=== PATIENT | male | born 1945 | race Caucasian/White ===

== ENCOUNTER 2017-09-28 08:31 | Inpatient (IN) | payer MEDICARE ==
--- NOTE | 2017-09-28 10:39 | RAD ---
FRONTAL RADIOGRAPH CHEST: DATE: 09/28/17. COMPARISON: 08/03/17. HISTORY: Pain. FINDINGS: Stable heart and mediastinal contours. No pneumothorax, lobar consolidation, or alveolar edema. Inc reased linear density in the left lung base suggests volume loss or scar. IMPRESSION: No lobar consolidation or alveolar edema. POS: [facility]
[2017-09-28] MEDS ORDERED: Amlodipine 5 MG TAB ONE (10:53)
[2017-09-28] MEDS ORDERED: hydrALAZINE 20 MG/ML VIAL ONE (10:53)
[2017-09-28] MEDS ORDERED: Metoprolol Tartrate 50 MG TAB ONE (10:53)
[2017-09-28] MEDS ORDERED: Piperacillin/Tazobactam 3.375 GM in Sodium Chloride 0.9% 100 ML IVPB SCH (12:15)
--- NOTE | 2017-09-28 12:29 | HP ---
PRIMARY CARE PHYSICIAN: Dr. Wetzel at [facility]. REASON FOR ADMISSION: Acute hypoxic respiratory failure and acute aspiration pneumonia. HISTORY OF PRESENT ILLNESS: A 71-year-old male who has multiple medical problems including hypertens ion, diabetes type 2, history of cerebrovascular accident with oropharyngeal dysphagia. Patient has PEG tube and he is getting all medication and nutritional support through the PEG tube. At the [facility], the patient was appeared in respiratory distress. He was appeared aspirated liquid. The [facility] official reported that this patient is noncompliant with the drinking. Whenever he does p hysical therapy, he drinks water from other patient. Today, when he drank water and after that he alcazar d choking and he was having gurgling sound in his throat and he was feeling shortness of breath. He was also having hypoxia and that is why paramedics was called and paramedics brought him to the emerg ency room. In the emergency room, he was barely maintaining saturations in the 90%. Initially, he was on nasal cannula oxygen, but that was not maintaining his oxygen saturation. That is why nonrebreather was st arted. The patient was given nebulizer therapy. That did not improve his condition. The patient's laboratory parameter appeared normal, but his overall condition appeared more worse. In our emergenc y room, he was saturating only 70% initially. We decided to keep this patient in the hospital in [facility] for close monitoring. This patient has similar presentation in 07/2017. At that time, patient required intubation. Today in the emergency room, chest x-ray did not show any acute infiltration. He has received Zosyn in the emergency room. The patient is not able to provide any history at this point, because of his respir atory distress. ALLERGIES: No known drug allergies. CURRENT HOME MEDICATIONS: Plavix 75 mg daily, potassium chloride 20 mEq daily, Flomax 0.4 mg daily, MiraLax 17 grams daily, pravastatin 40 mg daily, trazodone 50 mg daily, amlodipine 10 mg daily, lisin opril 20 mg p.o. daily, Lopressor 50 mg daily, hydralazine 50 mg 3 times daily, risperidone 0.25 mg t wice daily. The patient is taking metformin 500 mg twice daily. REVIEW OF SYSTEMS: The following complete review of systems was negative, unless otherwise mentioned in the HPI or below: Constitutional: Weight loss or gain, ability to conduct usual activities. Skin: Rash, itching. Eyes: Double vision, pain. ENT/Mouth: Nose bleeding, neck stiffness, pain, tenderness. Cardiovascular: Palpitations, dyspnea on exertion, orthopnea. Respiratory: Shortness of breath, wheezing, cough, hemoptysis, fever or night sweats. Gastrointestinal: Poor appetite, abdominal pain, heartburn, nausea, vomiting, constipation, or diarr hea. Genitourinary: Urgency, frequency, dysuria, nocturia. Musculoskeletal: Pain, swelling. Neurologic/Psychiatric: Anxiety, depression. Allergy/Immunologic: Skin rash, bleeding tendency. Review of systems is nonreliable, because of level of respiratory distress. Patient is not completel y participating with review of systems. 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 PAST SURGICAL HISTORY: Right great toe and metatarsal amputation, colon resection for colon cancer, PEG tube placement. PAST PSYCHIATRIC HISTORY: Anxiety and depression. SOCIAL HISTORY: Patient lives at [facility]. He is full code. He does not have any tobacco, alcohol or illicit drug abuse. FAMILY HISTORY: Diabetes, positive among several family members. One sister was diagnosed with lung cancer. EMERGENCY ROOM COURSE: The patient is given Zosyn, hydralazine 50 mg, amlodipine 10 mg, and Lopresso r 50 mg. PHYSICAL EXAMINATION: VITAL SIGNS: On arrival, blood pressure 93/55, pulse 100, respiratory rate 29, saturation 77% on alberto m air, temperature 99.1, weight 79.3 kilograms. GENERAL: Patient is in respiratory distress on nonrebreather. HEAD: Normocephalic, atraumatic. EYES: Pupils round, reactive to light. Extraocular muscles intact. ENT: Oropharynx within normal limits. Moist mucous membranes. No oral lesions. No pharyngeal eryt gwendolyn, no exudate. NECK: Supple. Range of motion is normal. No meningeal signs of irritation. LUNGS: Bilateral coarse breath sounds, gurgling sound noted in throat, diffuse rales noted. CARDIAC: S1, S2 regular, tachycardia, no murmur, no gallop, no rub. ABDOMEN: PEG tube in place. No distention. Bowel sounds present. No guarding, no rigidity, no shawna ound. BACK: Unremarkable, no CVA tenderness. EXTREMITIES: Upper extremities: Passive movement of all joints are normal. Lower extremities: Rig ht great toe amputation noted. No edema, good peripheral pulsation. SKIN: No skin rash. HEMATOLOGICAL: No lymphadenopathy. PSYCHIATRIC: Unable to assess at this point. NEUROLOGIC: He is moving all 4 limbs, but detailed neurological examination is not possible because of level of cognitive status as well as respiratory distress. SIGNIFICANT LABORATORY DATA AND IMAGING: EKG based on my review reveals normal sinus rhythm, nonspec ific ST-T changes, premature ventricular complexes. Chest x-ray based on my review, no acute cardiop ulmonary process. CBC: WBC 10.2, hemoglobin 13.4, platelets 175. CK-MB 2.6, troponin I less than 0 .010. Sodium 137, potassium 3.7, BUN 26, creatinine 1.06, glucose 175, chloride 96, carbon dioxide 3 1, calcium 9.5, total protein 6.9, albumin 3.7, alkaline phosphatase 71, AST 22, ALT 20, globulin 3.2 , albumin 3.7. ASSESSMENT AND PLAN: 1. Acute respiratory distress with acute hypoxic respiratory failure secondary to aspiration pneumon itis. At this point, the patient is requiring a nonrebreather. He is still in respiratory distress despite emergency room treatment. At this point, the patient is at high risk for intubation. We luis carlos ornelas keep this patient in IMCU. We will consult weather reporter propulsion generator repairer. Meanwhile, we will continue wit h the DuoNeb q.6 hourly and as needed basis along with Solu-Medrol 40 mg IV q.8 hourly. We will keep him in n.p.o. except medications. We will continue with oxygen to keep saturation above 92%. We luis carlos ornelas closely monitor in IMCU. 2. Acute aspiration pneumonitis/pneumonia. Patient has low grade fever. He is in respiratory distr ess, currently chest x-ray is not showing any infiltration, but we will repeat chest x-ray again michaelle rrow. The patient will be kept on broad spectrum antibiotic therapy with Zosyn. 3. Diabetes type 2. We will continue with insulin as per sliding scale per protocol, monitor Accu-C hek every 6 hourly. 4. Hypertension. We will continue with hydralazine and clonidine on p.r.n. basis for high blood pre ssure if needed. 5. Benign enlargement of prostate. We will continue patient's home medication of Flomax 0.4 mg zehra y. 6. Dyslipidemia. We will continue pravastatin 40 mg per tube daily. 7. History of cerebellar stroke. We will continue Plavix along with statin therapy and antihyperten sive medication, amlodipine and lisinopril as per home dosage. 8. Oropharyngeal dysphagia, we will continue with tube feeding when the patient is more stabilized. We will keep him n.p.o. for now except medications. 9. Anxiety and depression. We will resume risperidone 0.25 mg twice daily when the patient is more stabilized. 10. Deep venous thrombosis prophylaxis. Lovenox 40 mg subcu daily. 11. Gastrointestinal prophylaxis, Protonix 40 mg IV daily. 12. Code status: The patient has full code status at skilled nursing and patient's son, Sriram Hall i s the surrogate decision maker. Disposition and plan based on clinical course. We are expecting patient's stay in hospital more than 2 midnights. Plan of care discussed with the family member.
[2017-09-28] MEDS ORDERED: hydrALAZINE 25 MG TAB PO ONE (13:15)
[2017-09-28 13:55] LABS: Troponin I Less than 0.010 ng/mL (< 0.028)
[2017-09-28 13:57] LABS: Anion Gap 14 mmol/L (10-20); BUN (Urea Nitrogen) 26 mg/dL (8.4-25.7); Calc. Creatinine Clearance 0 mL/min (70-130); Carbon Dioxide 31 mmol/L (23-31); Chloride 96 mmol/L (98-107); Estimated GFR-MDRD 69
[2017-09-28 13:58] LABS: ALT (SGPT) 20 U/L (8-55); AST (SGOT) 22 U/L (5-34); Alkaline Phosphatase 71 U/L (40-150); Bilirubin, Total 0.5 mg/dL (0.2-1.2); Calcium 9.5 mg/dL (7.8-10.44); Globulin 3.2 g/dL (2.4-3.5); Protein, Total 6.9 g/dL (5.8-8.1)
[2017-09-28] MEDS ORDERED: Sodium Chloride 0.65% Nasal 44 ML BOT EA NARE PRN (14:30)
[2017-09-28] MEDS ORDERED: Milk Of Magnesia 30 ML UDCUP PER TUBE PRN (14:30)
[2017-09-28] MEDS ORDERED: cloNIDine 0.1 MG TAB PER TUBE PRN (14:30)
[2017-09-28] MEDS ORDERED: Dextrose 5% in Water 1,000 ML IV PRN (14:30)
[2017-09-28] MEDS ORDERED: Diabetic Tussin 200 MG/10 ML UDCUP PER TUBE PRN (14:30)
[2017-09-28] MEDS ORDERED: HYDROcodone/Acetaminophen 5/325 mg Tablet PER TUBE PRN (14:30)
[2017-09-28] MEDS ORDERED: Ondansetron HCl/PF 4 MG/2 ML Vial IVP PRN (14:30)
[2017-09-28] MEDS ORDERED: Bisacodyl 10 MG SUPP PR PRN (14:30)
[2017-09-28] MEDS ORDERED: Acetaminophen 325 MG TAB PER TUBE PRN (14:30)
[2017-09-28] MEDS ORDERED: Loratadine 10 MG TAB PER TUBE PRN (14:30)
[2017-09-28] MEDS ORDERED: Loperamide HCl 2 MG CAP PER TUBE PRN (14:30)
[2017-09-28] MEDS ORDERED: Eucerin (Mineral Oil/Petrolatum,White) 30 gm Jar TOP PRN (14:30)
[2017-09-28] MEDS ORDERED: hydrALAZINE 20 MG/ML VIAL SLOW IVP PRN (14:30)
[2017-09-28] MEDS ORDERED: Mag-Al 1200 mg/1200 mg/30 ML UDCUP PER TUBE PRN (14:30)
[2017-09-28] MEDS ORDERED: Dextrose 50% Abboject 50 ML SYRINGE SLOW IVP PRN (14:30)
[2017-09-28] MEDS ORDERED: Artificial Tears 18 DROP/0.9 ML EA EYE PRN (14:30)
[2017-09-28] MEDS ORDERED: Ondansetron ODT 4 MG TAB PER TUBE PRN (14:30)
[2017-09-28 14:32] LABS: Anion Gap 8 mmol/L (-14-95); T. Carbon Dioxide 35.1 mmol/L (1.0-85.0); vO2 Saturation-calc 92.7 % (0.0-100.0)
[2017-09-28 14:33] LABS: #Eosinphils 0.1 thou/uL (0.0-0.7); #Lymphocytes 1.2 thou/uL (1.20-3.40); #Monocytes 0.9 thou/uL (0.11-0.59); %Basophils 0.2 % (0.0-1.0); %Eosinophils 1.1 % (0.0-10.0); %Lymphocytes 11.8 % (21.0-51.0); %Monocytes 8.4 % (0.0-10.0); Hematocrit 40.1 % (42.0-52.0); Mean Platelet Volume 10.9 fL (7.4-10.4); Red Blood Cell (RBC) Count 4.79 mill/uL (4.70-6.10); White Blood Cell (WBC) Count 10.2 thou/uL (4.8-10.8)
[2017-09-28] MEDS: Vancomycin HCl 1.5 GM in Sodium Chloride 0.9% 250 ML 300 ML IVPB SCH (16:20)
[2017-09-28] MEDS: Piperacillin/Tazobactam 3.375 GM, Admixture Fee 1 EACH in Sodium Chloride 0.9% 100 ML IVPB SCH ×2 (18:33→23:33)
[2017-09-28] MEDS: guaiFENesin ER 600 MG TAB PER TUBE SCH (20:55)
[2017-09-28] MEDS ORDERED: FLU VACC TS2017-18 (>65YR) 0.5 ML SYRINGE IM ONE (21:00)
--- NOTE | 2017-09-28 21:06 | CON ---
DATE OF CONSULTATION: 09/28/2017 HISTORY OF PRESENT ILLNESS: This is a 71-year-old gentleman who was recently discharged from the [facility]. He has multiple issues. He came to the ER at 10:00 this morning with symptoms of shortness of breath, cough, recurrent aspira tion, sats were in the 70s, he was placed on nonrebreather. I am having difficulty handling his secretions. Sats noted was 77% on room air. On low-flow oxygen 4 liters, sats are still fluctuating anywhere from 77-93. He can audibly hear his rhonchi. He has a very poor cough. His x-ray shows retrocardiac density in the left side, but no other infiltrates. He is from the [facility]. He was gurgling when he came in. PAST MEDICAL HISTORY: CVA, left-sided deficit, diabetes, hypertension, lipidemia. Medical history i s pertinent for otherwise cerebellar stroke, BPH. PAST SURGICAL HISTORY: Colon and toe. MEDICATIONS: His list of medicine included trazodone, Risperdal 0.25, , hydralazine, Flomax 0.4 , pravastatin, metoprolol 50, lisinopril 20, Plavix 75, amlodipine 10. REVIEW OF SYSTEMS: Difficult to obtain. PHYSICAL EXAMINATION: GENERAL: He is clearly having difficulty breathing, sats noticed on 4 liters fluctuating from 77-94, pulse 74, temperature is 99, blood pressure 160/78. CHEST: Extensive rhonchi. CARDIAC: Sinus tachycardia. ABDOMEN: Soft. LABORATORY: WBC 10,000, H&H 13 and 40, platelet count 164. PO2 of 63, PCO2 40, pH 7.47 creatinine i s 0. Lytes are normal. IMPRESSION: Acute on chronic respiratory failure, retained secretions, cerebrovascular accident, dys phagia, diabetes. He is on Zosyn, vancomycin, neb treatments, steroids. PLAN: Diagnostic therapeutic bronchoscopy will be performed to clear his airways. He is FULL CODE. We will follow.
--- NOTE | 2017-09-28 21:22 | OP ---
PROCEDURE: Therapeutic bronchoscopy. INDICATIONS: Retained secretions. PROCEDURE IN DETAIL: After informed consent, a bite block was placed and no sedation was given. Sat s were being monitored, flexible bronchoscope was passed. There were copious amounts of thick purule nt secretions sitting on top of his vocal cords, posterior pharynx, all suctioned until clear. Upon entering the trachea, large volume of pus was seen in the trachea, which was suctioned and lavaged wi th normal saline. Initially, the right lung was inspected, right upper and right lower lobe, no endo bronchial disease was seen. Copious amount of pus was suctioned and lavaged until clear. Left lung was inspected thereafter. There is also large amount of pus, which was suctioned and lavaged until cl ear. Thereafter, both lungs were reinspected and relavaged the lungs. No endobronchial obstruction or bleeding was seen. The patient tolerated the procedure well. The washings were sent for Gram sta in and C&S.
[2017-09-29] MEDS: Vancomycin HCl 1.5 GM in Sodium Chloride 0.9% 250 ML 300 ML IVPB SCH ×2 (03:43→17:18)
[2017-09-29 04:48] LABS: #Lymphocytes 0.2 thou/uL (1.20-3.40); #Monocytes 0.6 thou/uL (0.11-0.59); #Neutrophils 6.6 thou/uL (1.40-6.50); %Basophils 0.3 % (0.0-1.0); %Eosinophils 0.1 % (0.0-10.0); %Lymphocytes 2.6 % (21.0-51.0); %Monocytes 7.9 % (0.0-10.0); Hematocrit 36.2 % (42.0-52.0); Mean Platelet Volume 11.2 fL (7.4-10.4); Red Blood Cell (RBC) Count 4.23 mill/uL (4.70-6.10); White Blood Cell (WBC) Count 7.4 thou/uL (4.8-10.8)
[2017-09-29 05:00] LABS: ALT (SGPT) 17 U/L (8-55); AST (SGOT) 19 U/L (5-34); Alkaline Phosphatase 52 U/L (40-150); Anion Gap 15 mmol/L (10-20); BUN (Urea Nitrogen) 25 mg/dL (8.4-25.7); Calc. Creatinine Clearance 75 mL/min (70-130); Calcium 9.1 mg/dL (7.8-10.44); Carbon Dioxide 28 mmol/L (23-31); Chloride 97 mmol/L (98-107); Estimated GFR-MDRD 57; Protein, Total 6.5 g/dL (5.8-8.1)
[2017-09-29] MEDS: Piperacillin/Tazobactam 3.375 GM, Admixture Fee 1 EACH in Sodium Chloride 0.9% 100 ML IVPB SCH ×4 (05:12→23:48)
[2017-09-29] MEDS: HumaLOG 300 UNITS/3 ML VIAL SC PRN ×4 (05:15→21:44)
--- NOTE | 2017-09-29 08:12 | RAD ---
CHEST 1 VIEW: HISTORY: Pneumonia. COMPARISON: 09/28/17. FINDINGS: Portable semiupright chest demonstrates cardiomegaly. There is atherosclerosis of the aorta. Pulmon debbie vessels are slightly prominent. There are patchy interstitial opacities. A right lower lobe inf iltrate is suspected. The possibility of left lower lobe infiltrate is also raised. No pneumothorax. IMPRESSION: Bibasilar interstitial infiltrates. Continued surveillance. POS: [facility]
[2017-09-29] MEDS: guaiFENesin ER 600 MG TAB PER TUBE SCH ×2 (08:55→20:53)
[2017-09-29] MEDS: Enoxaparin Sodium 40 MG/0.4 ML SYRINGE SC SCH (08:55)
[2017-09-29] MEDS: Saccharomyces boulardii 250 MG CAP PO SCH (08:55)
[2017-09-29] MEDS ORDERED: Pantoprazole 40 MG VIAL IVP SCH (09:00)
[2017-09-29] MEDS ORDERED: hydrALAZINE 20 MG/ML VIAL SLOW IVP PRN (09:19)
[2017-09-29] MEDS ORDERED: Lisinopril 10 MG TAB PER TUBE SCH (09:30)
[2017-09-29] MEDS ORDERED: Amlodipine 5 MG TAB PER TUBE SCH (09:30)
[2017-09-29] MEDS ORDERED: Metoprolol Tartrate 25 MG TAB PER TUBE SCH (09:30)
[2017-09-29] MEDS ORDERED: Clopidogrel Bisulfate 75 MG TAB PER TUBE SCH (09:30)
[2017-09-29] MEDS ORDERED: hydrALAZINE 25 MG TAB PO SCH (09:30)
[2017-09-29] MEDS ORDERED: NPH, Human Insulin Isophane 300 UNIT/3 ML VIAL SC SCH (12:00)
--- NOTE | 2017-09-29 12:39 | PRG ---
DATE OF SERVICE: 09/29/2017 SUBJECTIVE: Mr. Hall this morning is much better, less short of breath for the bronchoscopy and la rge volume of pus was aspirated. PHYSICAL EXAMINATION: VITAL SIGNS: Temperature 99, pulse 112, sats 100%, blood pressure 164/75. CHEST: Rhonchi. CARDIAC: Normal S1 and S2. No gallops. ABDOMEN: Soft, no masses. IMPRESSION: 1. Recurrent aspiration with extensive tracheobronchial infection. 2. Dysphagia. 3. Permanent percutaneous endoscopic gastrostomy. 4. Cerebrovascular accident. LABORATORY DATA: His white count is 7,000, hemoglobin and hematocrit 12 and 36, platelet count is no rmal. Electrolytes are normal. Creatinine 1.24. Continue antibiotics until we get his cultures back. Thereafter, deescalated. I have discontinued the steroids. Continue neb treatments, supportive care . Start nutrition via the PEG tube. Hopefully, he can be discharged back to the skilled nursing. In fact, his chest x-ray today shows prett y much unremarkable.
--- NOTE | 2017-09-29 13:56 | PDOC.PN ---
- Subjective Encounter Start Date: 09/29/17 Encounter Start Time: 12:30 Patient seen and examined. No new complaints. No overnight events. Feels better. Chart reviewed. - Objective Resuscitation Status: Resuscitation Status FULL:Full Resuscitation MAR Reviewed: Yes Vital Signs & Weight: Vital Signs (12 hours) Temp Pulse Resp BP Pulse Ox 09/29/17 11:31 101 H 09/29/17 11:30 101 H 09/29/17 11:10 98.2 F 106 H 14 155/77 H 97 09/29/17 10:55 101 H 16 96 09/29/17 08:33 94 20 99 09/29/17 07:31 99.9 F H 102 H 19 100 09/29/17 07:15 97.6 F 95 18 164/74 H 99 09/29/17 03:00 99.9 F H 102 H 19 170/79 H 98 09/29/17 02:13 96 09/29/17 02:11 94 18 96 Weight Admit Weight 213 lb Weight 213 lb I&O: 09/28/17 09/29/17 09/30/17 06:59 06:59 06:59 Intake Total 900 Balance 900 Result Diagrams: 09/29/17 04:04 09/29/17 04:04 Additional Labs: Accuchecks 09/29/17 09/29/17 09/28/17 11:10 04:22 20:23 POC Glucose 371 H 289 H 165 H 09/28/17 15:16 POC Glucose 167 H Radiology Reviewed by me: Yes (CXR - Bibasilar infiltrate) EKG Reviewed by me: Yes (Tele SR) Phys Exam - Physical Examination Constitutional: NAD Respiratory: no wheezing Symmetrical, Scat rhonchi with bibasilar rales Cardiovascular: RRR, no significant murmur, no rub no gallop Gastrointestinal: soft, non-tender, no distention, positive bowel sounds PEG + Musculoskeletal: no edema Neurological: non-focal, normal sensation, moves all 4 limbs Dx/Plan (1) Acute respiratory failure with hypoxemia Code(s): J96.01 - ACUTE RESPIRATORY FAILURE WITH HYPOXIA Status: Acute (2) Aspiration pneumonia Code(s): J69.0 - PNEUMONITIS DUE TO INHALATION OF FOOD AND VOMIT Status: Acute (3) DM2 (diabetes mellitus, type 2) Status: Chronic (4) Dyslipidemia Code(s): E78.5 - HYPERLIPIDEMIA, UNSPECIFIED Status: Chronic (5) Hypertension Code(s): I10 - ESSENTIAL (PRIMARY) HYPERTENSION Status: Chronic Qualifiers: Hypertension type: essential hypertension Qualified Code(s): I10 - Essential (primary) hypertension (6) Swallowing dysfunction Code(s): R13.10 - DYSPHAGIA, UNSPECIFIED Status: Chronic Comment: Unsafe for any consistency last admission (7) Other issues per previous notes - Plan cont current plan of care, continue antibiotics, PT/OT, speech therapy, DVT proph w/lovenox, DVT proph w/SCDs * AM labs * Cont Vancomycin/Zosyn * One dose 10 units NPH * Hyperglycemia probably due to steroids * Cont Prednsione * Pulmonary following * Cont to monitor * Monitor Vancomycin level * Resume selected home meds Review of Systems - Review of Systems Constitutional: negative: Fever, Chills, Sweats, Weakness, Malaise, Other Respiratory: Cough, Dry, SOB with Excertion. negative: Shortness of Breath, Hemoptysis, Pleuritic Pain, Sputum, Wheezing Cardiovascular: negative: Chest Pain, Palpitations, Orthopnea, Paroxysmal Noc. Dyspnea, Edema, Light Headedness Gastrointestinal: negative: Nausea, Vomiting, Abdominal Pain, Diarrhea, Constipation, Melena, Hematochezia - Medications/Allergies Allergies/Adverse Reactions: Allergies Allergy/AdvReac Type Severity Reaction Status Date / Time No Known Drug Allergies Allergy Verified 08/01/17 12:59 Medications: Current Medications Acetaminophen (Tylenol) 650 mg PER TUBE Q4H PRN PRN Reason: Headache/Fever or Pain Last Admin: 09/28/17 23:57 Dose: 650 mg Hydrocodone Bitart/Acetaminophen ([place] 5/325) 1 tab PER TUBE Q4H PRN PRN Reason: Moderate Pain (4-6) Al Hydroxide/Mg Hydroxide (Maalox) 30 ml PER TUBE Q6H PRN PRN Reason: Heartburn or Indigestion Albuterol/Ipratropium (Duoneb) 3 ml NEB [id number] CARLOS Last Admin: 09/29/17 10:55 Dose: 3 ml Amlodipine Besylate (Norvasc) 5 mg PER TUBE BID [facility] Artificial Tears (Tears Naturale) 0 drop EA EYE PRN PRN PRN Reason: Dry Eyes Atorvastatin Calcium (Lipitor) 10 mg PO HS CARLOS Bisacodyl (Dulcolax) 10 mg ME Q24H PRN PRN Reason: Constipation Clonidine (Catapres) 0.1 mg PER TUBE Q4H PRN PRN Reason: Systolic BP > 180 Clopidogrel Bisulfate (Plavix) 75 mg PER TUBE DAILY [facility] Dextrose/Water (Dextrose 50%) 25 gm SLOW IVP PRN PRN PRN Reason: Hypoglycemia Enoxaparin Sodium (Lovenox) 40 mg SC 0900 [facility] Last Admin: 09/29/17 08:55 Dose: 40 mg Glucagon (Glucagon) 1 mg IM PRN PRN PRN Reason: Hypoglycemia Guaifenesin (Robitussin Sf) 200 mg PER TUBE Q4H PRN PRN Reason: Cough Guaifenesin (Mucinex) 600 mg PER TUBE Q12HR [facility] Last Admin: 09/29/17 08:55 Dose: 600 mg Hydralazine HCl (Apresoline) 10 mg SLOW IVP Q4H PRN PRN Reason: SBP Greater Than 180 Hydralazine HCl (Apresoline) 75 mg PER TUBE BID [facility] Dextrose/Water (D5w) 1,000 mls @ 0 mls/hr IV .Q0M PRN; As Directed PRN Reason: Hypoglycemia Piperacillin Sod/Tazobactam Sod 3.375 gm/ Miscellaneous Medication 1 each/ Sodium Chloride 100 mls @ 200 mls/hr IVPB Q6HR [facility] Last Admin: 09/29/17 11:22 Dose: 100 mls Vancomycin HCl 1.5 gm/ Sodium (Chloride) 300 mls @ 200 mls/hr IVPB 0400,1600 [facility] Last Admin: 09/29/17 03:43 Dose: 300 mls Insulin Human Lispro (Humalog) 0 units SC .MODERATE SLIDING SC PRN PRN Reason: Moderate Correctional Scale Last Admin: 09/29/17 12:17 Dose: 10 unit Insulin Human Lispro (Humalog) 0 units SC .BEDTIME SLIDING SC PRN PRN Reason: Bedtime Correctional Scale Last Admin: 09/29/17 05:15 Dose: 3 unit Insulin Human NPH (Humulin N) 10 unit SC NOW [facility] Stop: 09/29/17 14:00 Last Admin: 09/29/17 13:18 Dose: 10 unit Lisinopril (Zestril) 10 mg PER TUBE BID [facility] Loperamide HCl (Imodium) 2 mg PER TUBE PRN PRN PRN Reason: Diarrhea/Loose Stools Loratadine (Claritin) 10 mg PER TUBE DAILYPRN PRN PRN Reason: Sinus Symptoms Magnesium Hydroxide (Milk Of Magnesium) 30 ml PER TUBE DAILYPRN PRN PRN Reason: Constipation Metoprolol Tartrate (Lopressor) 25 mg PER TUBE BID [facility] Mineral Oil/White Petrolatum (Eucerin Cream) 0 gm TOP BIDPRN PRN PRN Reason: Dry Skin Miscellaneous Medication (Pharmacy To Dose) 1 each IVPB ASDIR [facility] Ondansetron HCl (Zofran Odt) 4 mg PER TUBE Q6H PRN PRN Reason: Nausea/Vomiting Ondansetron HCl (Zofran) 4 mg IVP Q6H PRN PRN Reason: Nausea/Vomiting Pantoprazole Sodium (Protonix) 40 mg PER TUBE DAILY [facility] Prednisone (Prednisone) 10 mg PO QAM-WM [facility] Stop: 10/05/17 08:01 Saccharomyces Boulardii (Florastor) 250 mg PO DAILY [facility] Last Admin: 09/29/17 08:55 Dose: 250 mg Sodium Chloride ([place] Nasal [place] 0.65%) 0 ml EA NARE QIDPRN PRN PRN Reason: Nasal Congestion Sodium Chloride (Flush - Normal Saline) 10 ml IVF Q12HR [facility] Last Admin: 09/29/17 08:55 Dose: 10 ml Sodium Chloride (Flush - Normal Saline) 10 ml IVF PRN PRN PRN Reason: Saline Flush Tamsulosin HCl (Flomax) 0.4 mg PO [facility]
[2017-09-29] MEDS: Amlodipine 5 MG TAB PER TUBE SCH (20:51)
[2017-09-29] MEDS: hydrALAZINE 25 MG TAB PER TUBE SCH (20:52)
[2017-09-29] MEDS: Atorvastatin Calcium 10 MG TAB PO SCH (20:53)
[2017-09-29] MEDS: Tamsulosin HCl 0.4 MG CAP PO SCH (20:53)
[2017-09-29] MEDS: Lisinopril 10 MG TAB PER TUBE SCH (20:53)
[2017-09-29] MEDS ORDERED: Pravastatin Sodium 40 MG TAB PO SCH (21:00)
[2017-09-29] MEDS: Metoprolol Tartrate 25 MG TAB PER TUBE SCH (21:28)
[2017-09-30 03:36] LABS: #Lymphocytes 0.5 thou/uL (1.20-3.40); #Monocytes 0.7 thou/uL (0.11-0.59); #Neutrophils 7.8 thou/uL (1.40-6.50); %Eosinophils 0.1 % (0.0-10.0); %Lymphocytes 5.5 % (21.0-51.0); %Monocytes 8.1 % (0.0-10.0); Hematocrit 34.2 % (42.0-52.0); Mean Platelet Volume 10.7 fL (7.4-10.4); Red Blood Cell (RBC) Count 3.96 mill/uL (4.70-6.10)
[2017-09-30 03:41] LABS: Anion Gap 9 mmol/L (10-20); BUN (Urea Nitrogen) 24 mg/dL (8.4-25.7); Calc. Creatinine Clearance 90 mL/min (70-130); Carbon Dioxide 31 mmol/L (23-31); Chloride 101 mmol/L (98-107); Estimated GFR-MDRD 71; Vancomycin, Trough 17.7 ug/mL
[2017-09-30] MEDS: Vancomycin HCl 1.5 GM in Sodium Chloride 0.9% 250 ML 300 ML IVPB SCH ×2 (04:12→17:53)
[2017-09-30] MEDS: Piperacillin/Tazobactam 3.375 GM, Admixture Fee 1 EACH in Sodium Chloride 0.9% 100 ML IVPB SCH (06:24)
[2017-09-30] MEDS: HumaLOG 300 UNITS/3 ML VIAL SC PRN ×4 (06:39→21:24)
[2017-09-30] MEDS ORDERED: NPH, Human Insulin Isophane 300 UNIT/3 ML VIAL SC SCH (08:00)
--- NOTE | 2017-09-30 08:46 | PRG ---
DATE OF SERVICE: 09/30/2017 He is awake, alert and responsive. His cough is better. He is afebrile. Cultures are negative. PHYSICAL EXAMINATION: VITAL SIGNS: Blood pressure 140/62, temperature normal, sats 95%, respirations 16. CHEST: Chest reveals decreased breath sounds, no wheezing. CARDIAC: Normal S1, S2. IMPRESSION: 1. Recurrent aspiration. 2. Retained secretions secondary to post-cough. 3. Cerebrovascular accident. 4. Diabetes. PLAN: From a pulmonary standpoint of view he can transfer back to the custodial. I switched him to Bactrim for about 5 days. Continue neb treatments. He is n.p.o. Prognosis is poor for recurrent aspiration. Oropharynx, sec retions.
[2017-09-30] MEDS: Pantoprazole 40 MG GRANULES PACKET PER TUBE SCH (09:07)
[2017-09-30] MEDS: hydrALAZINE 25 MG TAB PER TUBE SCH ×2 (09:07→20:49)
[2017-09-30] MEDS: Lisinopril 10 MG TAB PER TUBE SCH ×2 (09:08→20:51)
[2017-09-30] MEDS: Sulfameth/Trimethoprim DS 800-160mg TAB PO SCH ×2 (09:08→20:51)
[2017-09-30] MEDS: Clopidogrel Bisulfate 75 MG TAB PER TUBE SCH (09:08)
[2017-09-30] MEDS: Amlodipine 5 MG TAB PER TUBE SCH ×2 (09:08→20:51)
[2017-09-30] MEDS: predniSONE 5 MG TAB PO SCH (09:09)
[2017-09-30] MEDS: Saccharomyces boulardii 250 MG CAP PO SCH (09:09)
[2017-09-30] MEDS: guaiFENesin ER 600 MG TAB PER TUBE SCH ×2 (09:11→20:50)
[2017-09-30] MEDS: Enoxaparin Sodium 40 MG/0.4 ML SYRINGE SC SCH (09:11)
[2017-09-30] MEDS: Metoprolol Tartrate 25 MG TAB PER TUBE SCH ×2 (09:13→20:50)
[2017-09-30 15:47] VITALS: BMI 30.9
--- NOTE | 2017-09-30 17:00 | PDOC.PN ---
- Subjective Encounter Start Date: 09/30/17 Encounter Start Time: 09:00 Patient seen and examined. No new complaints. No overnight events. Some cough with scant production. No fever. No SOB - Objective Resuscitation Status: Resuscitation Status FULL:Full Resuscitation MAR Reviewed: Yes Vital Signs & Weight: Vital Signs (12 hours) Temp Pulse Resp BP BP Pulse Ox 09/30/17 15:05 79 16 09/30/17 15:00 98.4 F 82 18 148/73 H 94 L 09/30/17 11:42 97.9 F 77 15 144/61 H 100 09/30/17 10:17 71 16 95 09/30/17 09:08 67 156/76 H 09/30/17 09:07 67 09/30/17 07:47 97.8 F 67 16 141/62 H 95 09/30/17 07:46 97.4 F L 72 18 97 Weight Admit Weight 213 lb Weight 215 lb 14.4 oz I&O: 09/29/17 09/30/17 10/01/17 06:59 06:59 06:59 Intake Total 900 3000 594 Balance 900 3000 594 Result Diagrams: 10/01/17 05:03 10/01/17 05:03 Additional Labs: Accuchecks 09/30/17 09/30/17 09/30/17 16:31 10:06 03:42 POC Glucose 279 H 271 H 257 H 09/29/17 21:35 POC Glucose 202 H Laboratory Tests 09/30/17 03:12 Phosphorus 2.0 L EKG Reviewed by me: Yes (Tele SR) Phys Exam - Physical Examination Constitutional: NAD Respiratory: no wheezing, no rhonchi Scat rales at bases Cardiovascular: RRR, no rub Gastrointestinal: soft, non-tender, positive bowel sounds Musculoskeletal: no edema Neurological: moves all 4 limbs Dx/Plan (1) Acute respiratory failure with hypoxemia Code(s): J96.01 - ACUTE RESPIRATORY FAILURE WITH HYPOXIA Status: Acute Comment: due to Aspiration pneumonia (2) Aspiration pneumonia Code(s): J69.0 - PNEUMONITIS DUE TO INHALATION OF FOOD AND VOMIT Status: Acute Comment: on Atbx/Steroids (3) DM2 (diabetes mellitus, type 2) Status: Chronic Qualifiers: Chronic kidney disease stage: stage 2 (mild) Comment: on sliding scale. Sugars uncontrolled prob due to steroids. (4) Dyslipidemia Code(s): E78.5 - HYPERLIPIDEMIA, UNSPECIFIED Status: Chronic (5) Hypertension Code(s): I10 - ESSENTIAL (PRIMARY) HYPERTENSION Status: Chronic Qualifiers: Hypertension type: essential hypertension Qualified Code(s): I10 - Essential (primary) hypertension (6) Swallowing dysfunction Code(s): R13.10 - DYSPHAGIA, UNSPECIFIED Status: Chronic Comment: Unsafe for any consistency last admission (7) Hypophosphatemia Code(s): E83.39 - OTHER DISORDERS OF PHOSPHORUS METABOLISM Status: Acute (8) Other issues per previous notes - Plan cont current plan of care, continue antibiotics, PT/OT, addiction social worker, speech therapy, DVT proph w/lovenox, DVT proph w/SCDs * Pulmonary following * Cont to monitor * Increase activity * DC planning * Replace Phosphorus * Monitor Vancomycin level * Cont current home meds Review of Systems - Review of Systems Constitutional: negative: Fever, Chills, Sweats, Weakness, Malaise Cardiovascular: negative: Chest Pain, Palpitations, Orthopnea, Paroxysmal Noc. Dyspnea, Edema, Light Headedness Gastrointestinal: negative: Nausea, Vomiting, Abdominal Pain, Diarrhea, Constipation, Melena, Hematochezia - Medications/Allergies Allergies/Adverse Reactions: Allergies Allergy/AdvReac Type Severity Reaction Status Date / Time No Known Drug Allergies Allergy Verified 08/01/17 12:59 Medications: Current Medications Acetaminophen (Tylenol) 650 mg PER TUBE Q4H PRN PRN Reason: Headache/Fever or Pain Last Admin: 09/28/17 23:57 Dose: 650 mg Hydrocodone Bitart/Acetaminophen (Paxton 5/325) 1 tab PER TUBE Q4H PRN PRN Reason: Moderate Pain (4-6) Al Hydroxide/Mg Hydroxide (Maalox) 30 ml PER TUBE Q6H PRN PRN Reason: Heartburn or Indigestion Albuterol/Ipratropium (Duoneb) 3 ml NEB S1DQ-AT CARLOS Last Admin: 09/30/17 15:05 Dose: 3 ml Amlodipine Besylate (Norvasc) 5 mg PER TUBE BID CARLOS Last Admin: 09/30/17 09:08 Dose: 5 mg Artificial Tears (Tears Naturale) 0 drop EA EYE PRN PRN PRN Reason: Dry Eyes Atorvastatin Calcium (Lipitor) 10 mg PO HS [facility] Last Admin: 09/29/17 20:53 Dose: 10 mg Bisacodyl (Dulcolax) 10 mg OH Q24H PRN PRN Reason: Constipation Clonidine (Catapres) 0.1 mg PER TUBE Q4H PRN PRN Reason: Systolic BP > 180 Clopidogrel Bisulfate (Plavix) 75 mg PER TUBE DAILY [facility] Last Admin: 09/30/17 09:08 Dose: 75 mg Dextrose/Water (Dextrose 50%) 25 gm SLOW IVP PRN PRN PRN Reason: Hypoglycemia Enoxaparin Sodium (Lovenox) 40 mg SC 0900 [facility] Last Admin: 09/30/17 09:11 Dose: 40 mg Glucagon (Glucagon) 1 mg IM PRN PRN PRN Reason: Hypoglycemia Guaifenesin (Robitussin Sf) 200 mg PER TUBE Q4H PRN PRN Reason: Cough Guaifenesin (Mucinex) 600 mg PER TUBE Q12HR [facility] Last Admin: 09/30/17 09:11 Dose: 600 mg Hydralazine HCl (Apresoline) 10 mg SLOW IVP Q4H PRN PRN Reason: SBP Greater Than 180 Hydralazine HCl (Apresoline) 75 mg PER TUBE BID [facility] Last Admin: 09/30/17 09:07 Dose: 75 mg Dextrose/Water (D5w) 1,000 mls @ 0 mls/hr IV .Q0M PRN; As Directed PRN Reason: Hypoglycemia Vancomycin HCl 1.5 gm/ Sodium (Chloride) 300 mls @ 200 mls/hr IVPB 0400,1600 [facility] Last Admin: 09/30/17 04:12 Dose: 300 mls Insulin Human Lispro (Humalog) 0 units SC .MODERATE SLIDING SC PRN PRN Reason: Moderate Correctional Scale Last Admin: 09/30/17 12:04 Dose: 6 unit Insulin Human Lispro (Humalog) 0 units SC .BEDTIME SLIDING SC PRN PRN Reason: Bedtime Correctional Scale Last Admin: 09/29/17 21:44 Dose: 2 unit Lisinopril (Zestril) 10 mg PER TUBE BID [facility] Last Admin: 09/30/17 09:08 Dose: 10 mg Loperamide HCl (Imodium) 2 mg PER TUBE PRN PRN PRN Reason: Diarrhea/Loose Stools Loratadine (Claritin) 10 mg PER TUBE DAILYPRN PRN PRN Reason: Sinus Symptoms Magnesium Hydroxide (Milk Of Magnesium) 30 ml PER TUBE DAILYPRN PRN PRN Reason: Constipation Metoprolol Tartrate (Lopressor) 25 mg PER TUBE BID [facility] Last Admin: 09/30/17 09:13 Dose: 25 mg Mineral Oil/White Petrolatum (Eucerin Cream) 0 gm TOP BIDPRN PRN PRN Reason: Dry Skin Miscellaneous Medication (Pharmacy To Dose) 1 each IVPB ASDIR [facility] Miscellaneous Medication (Phos-Nak) 1 pkt PO BID [facility] Last Admin: 09/30/17 09:12 Dose: 1 pkt Ondansetron HCl (Zofran Odt) 4 mg PER TUBE Q6H PRN PRN Reason: Nausea/Vomiting Ondansetron HCl (Zofran) 4 mg IVP Q6H PRN PRN Reason: Nausea/Vomiting Pantoprazole Sodium (Protonix) 40 mg PER TUBE DAILY [facility] Last Admin: 09/30/17 09:07 Dose: 40 mg Prednisone (Prednisone) 10 mg [facility] Stop: 10/05/17 08:01 Last Admin: 09/30/17 09:09 Dose: 10 mg Saccharomyces Boulardii (Florastor) 250 mg PO DAILY [facility] Last Admin: 09/30/17 09:09 Dose: 250 mg Sodium Chloride ([place] Nasal [place] 0.65%) 0 ml EA NARE QIDPRN PRN PRN Reason: Nasal Congestion Sodium Chloride (Flush - Normal Saline) 10 ml IVF Q12HR [facility] Last Admin: 09/30/17 09:22 Dose: 10 ml Sodium Chloride (Flush - Normal Saline) 10 ml IVF PRN PRN PRN Reason: Saline Flush Last Admin: 09/30/17 06:32 Dose: 10 ml Tamsulosin HCl (Flomax) 0.4 mg PO HS [facility] Last Admin: 09/29/17 20:53 Dose: 0.4 mg Trimethoprim/Sulfamethoxazole (Bactrim Ds) 1 tab PO BID [facility] Stop: 10/05/17 09:01 Last Admin: 09/30/17 09:08 Dose: 1 tab
[2017-09-30] MEDS: Atorvastatin Calcium 10 MG TAB PO SCH (20:51)
[2017-09-30] MEDS: Tamsulosin HCl 0.4 MG CAP PO SCH (20:52)
[2017-10-01] MEDS: Vancomycin HCl 1.5 GM in Sodium Chloride 0.9% 250 ML 300 ML IVPB SCH (04:06)
[2017-10-01 05:19] LABS: #Monocytes 0.6 thou/uL (0.11-0.59); #Neutrophils 6.3 thou/uL (1.40-6.50); %Basophils 0.1 % (0.0-1.0); %Eosinophils 0.3 % (0.0-10.0); %Lymphocytes 12.9 % (21.0-51.0); %Monocytes 7.9 % (0.0-10.0); Hematocrit 36.6 % (42.0-52.0); Red Blood Cell (RBC) Count 4.23 mill/uL (4.70-6.10)
[2017-10-01 05:30] LABS: Anion Gap 12 mmol/L (10-20); BUN (Urea Nitrogen) 20 mg/dL (8.4-25.7); BUN/Creatinine Ratio 21.74; Calc. Creatinine Clearance 102 mL/min (70-130); Calcium 8.5 mg/dL (7.8-10.44); Carbon Dioxide 27 mmol/L (23-31); Chloride 103 mmol/L (98-107); Estimated GFR-MDRD 81
[2017-10-01 05:33] LABS: Phosphorus 1.9 mg/dL (2.3-4.7)
[2017-10-01] MEDS: HumaLOG 300 UNITS/3 ML VIAL SC PRN ×2 (06:25→11:08)
[2017-10-01] MEDS: Enoxaparin Sodium 40 MG/0.4 ML SYRINGE SC SCH (08:11)
[2017-10-01] MEDS: Sulfameth/Trimethoprim DS 800-160mg TAB PO SCH (08:12)
[2017-10-01] MEDS: hydrALAZINE 25 MG TAB PER TUBE SCH (08:12)
[2017-10-01] MEDS: Clopidogrel Bisulfate 75 MG TAB PER TUBE SCH (08:12)
[2017-10-01] MEDS: Metoprolol Tartrate 25 MG TAB PER TUBE SCH (08:12)
[2017-10-01] MEDS: Lisinopril 10 MG TAB PER TUBE SCH (08:13)
[2017-10-01] MEDS: Amlodipine 5 MG TAB PER TUBE SCH (08:13)
[2017-10-01] MEDS: Saccharomyces boulardii 250 MG CAP PO SCH (08:13)
[2017-10-01] MEDS: guaiFENesin ER 600 MG TAB PER TUBE SCH (08:13)
[2017-10-01] MEDS: Pantoprazole 40 MG GRANULES PACKET PER TUBE SCH (08:14)
[2017-10-01] MEDS: predniSONE 5 MG TAB PO SCH (09:08)
[2017-10-01 11:01] VITALS: BP 143/63; TEMP 98
--- NOTE | 2017-10-01 14:08 | DIS ---
DATE OF ADMISSION: 09/28/2017 DATE OF DISCHARGE: 10/01/2017 DISCHARGE DISPOSITION: To senior living. FOLLOWUP: 1. Follow up with Dr. Wetzel at the nursing facility. 2. Base met with phosphorus in 3-4 days is recommended. 3. Diet: N.P.O. Patient is currently on tube feeding and is not safe for any consistency. ALLERGIES: No known drug allergies. DISCHARGE MEDICATIONS: 1. Bactrim 1 tablet b.i.d. for the next 5 days. 2. Phos-Nak 1 packet b.i.d. for the next 3 days. 3. Prednisone 10 mg daily for the next 3 days, then discontinue. Other home medications were resumed. 1. Amlodipine 10 mg daily. 2. Plavix 75 mg daily. 3. Hydralazine 50 mg three times daily. 4. Lisinopril 20 mg daily. 5. Metformin 500 mg b.i.d. 6. Lopressor 50 mg daily. 7. MiraLax 17 grams daily. 8. Potassium chloride 20 mEq daily. 9. Pravastatin 40 mg at bedtime. 10. Risperidone 0.25 mg b.i.d. 11. Flomax 0.4 mg daily. 12. Trazodone 50 mg at bedtime. BRIEF HOSPITAL COURSE: Patient is a 71-year-old male with hypertension, diabetes mellitus type 2, sw allow dysfunction secondary to stroke, status post PEG tube, presented to the hospital with shortness of breath. His workup was consistent with acute hypoxic respiratory failure with aspiration pneumon ia. Please refer to the history and physical dated 09/28/2017 for further details. The patient was admitted to the Intermediate Care Unit secondary to above. He was seen by Pulmonary, Dr. Bell. He underwent bronchoscopy for detained secretion on 09/28/2017. He showed good improveme nt with antibiotic that has been changed to oral. He was also started on IV steroids that has been c hanged to oral. He has been cleared by Pulmonary for discharge. FINAL DIAGNOSES: 1. Acute hypoxic respiratory failure secondary to aspiration pneumonia. 2. Diabetes mellitus type 2. 3. Hypertension. 4. Benign prostatic hypertrophy. 5. Dyslipidemia. 6. History of cerebrovascular accident, on Plavix. 7. Obesity with a body mass index of 31.3. 8. Swallow dysfunction, on percutaneous endoscopic gastrostomy tube feeding. Patient is unsafe for any consistency. 9. Anxiety and depression. 10. Hypophosphatemia. 11. Chronic kidney disease, stage 2. 12. Mild protein calorie malnutrition. 13. Chronic anemia. 14. Mild thrombocytopenia. Primary care physician is advised to repeat CBC after a week. His platelet on the day of discharge w as 125, on admission was 164. Total time coordinating the discharge of this patient was 33 minutes.
--- NOTE | 2017-10-01 17:06 | PRG ---
DATE OF SERVICE: 10/01/2017 SUBJECTIVE: The patient is awake, alert, and responsive. PHYSICAL EXAMINATION: VITAL SIGNS: Blood pressure 149/78, SATs 97% on 2 liters, temperature 98. CHEST: Decreased breath sounds, no wheezing. CARDIAC: Normal S1 and S2. LABORATORY DATA: White count 8,000, hemoglobin and hematocrit 12 and 36, platelet count is 126. Gretchen ctrolytes are normal. IMPRESSION: Recurrent aspiration and cerebrovascular accident. He can be discharged back to the longterm. All of his cultures are negative. He does not need to be on vancomycin. Sulfa and steroids.
== END 2017-10-01 15:02 | DRG 177 ==
LOC: ERS 08:31 → IMCU/EMU 10:40
PROVIDERS: ADMIT Internal Medicine; ATTEND Internal Medicine
PROC: 0BJ08ZZ Inspection of Tracheobronchial Tree, Via Natural or Artificial Opening Endoscopic (ICD-10-PCS; principal; 2017-09-28)
DX: J69.0 Pneumonitis due to inhalation of food and vomit (principal); J96.01 Acute respiratory failure with hypoxia; E44.1 Mild protein-calorie malnutrition; D69.6 Thrombocytopenia, unspecified; E83.39 Other disorders of phosphorus metabolism; E11.22 Type 2 diabetes mellitus with diabetic chronic kidney disease; R13.12 Dysphagia, oropharyngeal phase; Z93.1 Gastrostomy status; Z79.84 Long term (current) use of oral hypoglycemic drugs; I10 Essential (primary) hypertension; N40.0 Benign prostatic hyperplasia without lower urinary tract symptoms; E78.5 Hyperlipidemia, unspecified; F41.9 Anxiety disorder, unspecified; F32.9 Major depressive disorder, single episode, unspecified; I69.391 Dysphagia following cerebral infarction; Z85.038 Personal history of other malignant neoplasm of large intestine; Z23 Encounter for immunization; E66.9 Obesity, unspecified; Z68.31 Body mass index [BMI] 31.0-31.9, adult; D64.9 Anemia, unspecified; I12.9 Hypertensive chronic kidney disease with stage 1 through stage 4 chronic kidney disease, or unspecified chronic kidney disease; N18.2 Chronic kidney disease, stage 2 (mild)
CPT/HCPCS: 36415; 36416; 71010; 80053; 80069; 80202; 82330; 82553; 82803; 83735; 84484; 85025; 87070; 87205; 90471; 90682; 93005; 94640; 96365; C9113; G0008; G8996-GN-CN; G8997-GN-CM; J0360; J1815; J2543; J2920; J3370; J7050; J7620; Q2036

== ENCOUNTER 2018-07-28 13:01 | Observation (INO) | payer MEDICARE, MEDICAID ==
[2018-07-28 13:38] LABS: #Basophils 0.1 thou/uL (0.0-0.2); #Eosinphils 0.3 thou/uL (0.0-0.7); #Lymphocytes 1.1 thou/uL (1.20-3.40); #Monocytes 0.7 thou/uL (0.11-0.59); #Neutrophils 5.3 thou/uL (1.40-6.50); %Basophils 0.8 % (0.0-1.0); %Eosinophils 3.6 % (0.0-10.0); %Lymphocytes 15.2 % (21.0-51.0); %Monocytes 9.3 % (0.0-10.0); %Neutrophils 71.2 % (42.0-75.0); Hemoglobin 12.4 g/dL (14.0-18.0); Mean Corpuscular HGB CONC 33.8 g/dL (32.0-36.0); Mean Corpuscular Hemoglobin 27.2 pg (27.0-31.0); Mean Corpuscular Volume 80.4 fL (78.0-98.0); Mean Platelet Volume 8.9 fL (7.4-10.4); Platelet Count 273 thou/uL (130-400); RBC Distribution Width 15.6 % (11.5-14.5); Red Blood Cell (RBC) Count 4.57 mill/uL (4.70-6.10); White Blood Cell (WBC) Count 7.4 thou/uL (4.8-10.8)
[2018-07-28 14:06] LABS: ALT (SGPT) 12 U/L (8-55); AST (SGOT) 15 U/L (5-34); Albumin 3.9 g/dL (3.4-4.8); Alkaline Phosphatase 69 U/L (40-150); Anion Gap 14 mmol/L (10-20); BUN (Urea Nitrogen) 23 mg/dL (8.4-25.7); Bilirubin, Total 0.4 mg/dL (0.2-1.2); Calc. Creatinine Clearance 0 mL/min (70-130); Calcium 9.1 mg/dL (7.8-10.44); Carbon Dioxide 31 mmol/L (23-31); Chloride 96 mmol/L (98-107); Estimated GFR-MDRD 49; Globulin 3.8 g/dL (2.4-3.5); Glucose 111 mg/dL (83-110); Potassium 3.4 mmol/L (3.5-5.1); Protein, Total 7.7 g/dL (5.8-8.1); Sodium 138 mmol/L (136-145)
[2018-07-28 14:54] LABS: CKMB 2.7 ng/mL (0-6.6); Troponin I Less than 0.010 ng/mL (< 0.028)
--- NOTE | 2018-07-28 15:03 | RAD ---
CHEST ONE VIEW: HISTORY: Altered mental status. COMPARISON: 09/28/2017 FINDINGS: The cardiac silhouette is magnified by projection. The pulmonary vasculature is at the upper limits of normal. The mediastinum is midline. No lobar consolidation or evidence of pneumothorax. surveillance system monitor leads overly the chest. IMPRESSION: No active cardiopulmonary abnormalities are demonstrated. POS: [facility]
--- NOTE | 2018-07-28 15:06 | CT ---
HEAD CT WITHOUT CONTRAST: Date: 07/28/18 HISTORY: Altered mental status. COMPARISON: None. FINDINGS: No parenchymal hemorrhage. No extra-axial hematoma. No midline shift. Basilar cisterns are patent. Ag e-appropriate atrophy. Chronic small vessel ischemic change of white matter identified. Remote lacuna r infarcts involving bilateral deep tan matter structures are noted. Malacic and gliotic changes of the right cerebellar hemisphere. Calvarium is intact. Adequate aeration of the sinuses and mastoid ai r cells. IMPRESSION: 1. Age-appropriate atrophy. 2. Chronic small vessel ischemic changes of white matter. 3. Remote lacunar infarcts. 4. No acute intracranial process. POS: [facility]
[2018-07-28 18:36] LABS: Troponin I Less than 0.010 ng/mL (< 0.028)
[2018-07-28] MEDS ORDERED: Ondansetron HCl/PF 4 MG/2 ML Vial IVP PRN (19:24)
[2018-07-28] MEDS ORDERED: Mag-Al 1200 mg/1200 mg/30 ML UDCUP PO PRN (19:24)
[2018-07-28] MEDS ORDERED: Dextrose 50% Abboject 50 ML SYRINGE SLOW IVP PRN (19:24)
[2018-07-28] MEDS ORDERED: Ondansetron ODT 4 MG TAB PO PRN (19:24)
[2018-07-28] MEDS ORDERED: Dextrose 5% in Water 1,000 ML IV PRN (19:24)
[2018-07-28] MEDS ORDERED: Milk Of Magnesia 30 ML UDCUP PO PRN (19:24)
[2018-07-28] MEDS ORDERED: Acetaminophen 325 MG TAB PO PRN (19:24)
[2018-07-28] MEDS ORDERED: hydrALAZINE 20 MG/ML VIAL SLOW IVP PRN (19:24)
[2018-07-28] MEDS ORDERED: HumaLOG 300 UNITS/3 ML VIAL SC PRN ×2 (19:24)
[2018-07-28] MEDS: Sodium Chloride 0.9% 1,000 ML IV SCH (20:27)
[2018-07-28 21:35] LABS: Troponin I 0.011 ng/mL (< 0.028)
[2018-07-28 22:43] LABS: Bilirubin Negative (Negative); Blood, Urine Negative (Negative); Clarity CLOUDY (Clear); Glucose, Urine (Dipstick) Negative (Negative); Leukocyte Moderate (Negative); Nitrite Negative (Negative); Protein, Urine (Dipstick) Trace mg/dL (Neg-Trace); Specific Gravity, Urine 1.008 (1.002-1.036); pH, Urine 8.5 (5.0-9.0)
[2018-07-28 22:46] LABS: Bacteria/HPF 1+ HPF (None Seen); Hyaline Casts/LPF 0-3 HYALINE CAST LPF (0-3 Hyaline); RBC/HPF 0-3 HPF (0-3); Squamous Epithelial 0-3 HPF (0-3); WBC/HPF 0-3 HPF (0-3)
[2018-07-28 22:47] VITALS: BMI 24.6
--- NOTE | 2018-07-29 01:13 | HP ---
PRIMARY CARE PHYSICIAN: [facility]. CHIEF COMPLAINT: The patient passed out. HISTORY OF PRESENT ILLNESS: Mr. Hall is a pleasant 72-year-old gentleman who has history of prior CVA. He has some history of right-sided weakness. He lives at home, but has a home health provider and credit coordinator by the name of Jeannette, who apparently was working with the patient today. He is primari ly bed-bound and occasionally gets in the wheelchair and she says that he was seated in the wheelchai r when he passed out twice. The patient, unfortunately, does not have any recollection of the event. The patient says that other than having diarrhea for the last 2 weeks, he has no other complaints. The patient denies any chest pain or shortness of breath, no PND, no orthopnea, no palpitations. He denies feeling dizzy or lightheaded. He denies any abdominal pain, no blood in the stools, and ever turcios does not really have any memory of what happened. REVIEW OF SYSTEMS: All systems were reviewed and are negative except for that mentioned in the histo ry of present illness. PAST MEDICAL HISTORY: Significant for congestive heart failure, diabetes mellitus type 2, hyperlipid emia, hypertension, BPH, depression, cerebrovascular accident with right-sided weakness. PAST SURGICAL HISTORY: Has had a G-tube placed. ALLERGIES: No known drug allergies. SOCIAL HISTORY: He is single, has two children. He is a nonsmoker, nondrinker, no drug use. He has a credit coordinator. He needs assistance with ambulating and getting in and out of the bed. He would like to be a FULL CODE and his surrogate decision maker is, Sriram, his son. FAMILY HISTORY: Significant for lung cancer and diabetes. MEDICATIONS: His medications are taken from the ER records, the patient says he does not know his me dications and these include Plavix 75 mg daily, potassium chloride 20 mEq p.o. daily, metformin 1000 mg daily, pravastatin 40 mg once a day, amlodipine 10 mg daily, metoprolol 50 mg once a day, hydralaz ine 50 mg t.i.d., trazodone 50 mg once a day, ranitidine 150 mg once daily, Lasix 40 mg twice a day, Flomax 0.4 mg once a day, lisinopril 40 mg once daily, Levemir insulin 15 units subcu twice a day. PHYSICAL EXAMINATION: GENERAL: He is alert and oriented. He appears to be in no acute distress. He is well-developed and well-nourished. VITAL SIGNS: Blood pressure was 166/77, heart rate 62, respiratory rate is 16, temperature is 98.5. HEENT: Pupils are reactive and equal. Extraocular muscles are intact. His sclerae anicteric. Thro at: There is no erythema, no exudates. NECK: No adenopathy, no bruits. LUNGS: His lungs are clear to auscultation bilaterally. There is no wheezing, no rales, no rhonchi. CARDIOVASCULAR: He had a normal S1 and S2. I did not appreciate an S3 or S4. No murmurs, no clicks , no rubs. ABDOMEN: Soft, it is nontender, nondistended. Positive for bowel sounds. There is no rebound, no g uarding. He does have a G-tube in place. There is no surrounding erythema or exudates. No drainage . EXTREMITIES: There is no edema. MUSCULOSKELETAL: There is no muscle tenderness. NEUROLOGIC: His cranial nerves are intact, III through XII. He had a good treatment technician strength and his str ength is 5/5 in both his upper and lower extremities. Reflexes were 2+ and symmetric. He was able t o dorsiflex the feet. SKIN AND INTEGUMENT: There were no skin changes. No rash. LABORATORY AND DIAGNOSTIC RESULTS: White blood cell count 7.4, hemoglobin 12.4, hematocrit is 36.7, platelet count is 273,000. Sodium 138, potassium 3.4, chloride is 96, CO2 is 31, BUN of 23, creatini ne 1.42, glucose is 111. Troponin is less than 0.010. He had an EKG in which it was sinus rhythm, t he rate was 64. He had some voltage criteria for LVH and some T-wave flattening in V4, V5 and V6, pr olong QT, this is by my reading. He also had a chest x-ray, which is also by my reading including th andra findings of which were cardiomegaly and there was no cardiomegaly and no infiltrate. ASSESSMENT: This is a pleasant 72-year-old gentleman who presents with two syncopal episodes, one at physical therapy and then once in the shower. I suspect that the syncope is likely related to volum e depletion as his creatinine is elevated at 1.42, off a baseline of approximately 1.1. This is like ly the result of the diarrhea that he has had for over 2 weeks. PLAN: 1. For the syncope, he will be placed in observation. We will continue IV fluids. We will trend hi s cardiac enzymes. Get a carotid Doppler and echo since I do not see one recently. I suspect that i f these are negative, then his syncope is likely related to volume depletion. 2. For the diarrhea, this appears to be chronic diarrhea as it has been going on for 2 weeks. We wi ll get stool studies and if the C. difficile is negative, then likely we can treat empirically with I modium. 3. Diabetes mellitus. We will continue his usual medications as well as sliding scale insulin. 4. Hypertension. Again, we will need to reconcile and start his medications as needed. We will als o check orthostatics and also get a PT and OT eval.
[2018-07-29 05:44] LABS: #Basophils 0.1 thou/uL (0.0-0.2); #Eosinphils 0.2 thou/uL (0.0-0.7); #Lymphocytes 0.9 thou/uL (1.20-3.40); #Monocytes 0.6 thou/uL (0.11-0.59); #Neutrophils 5.7 thou/uL (1.40-6.50); %Basophils 0.7 % (0.0-1.0); %Eosinophils 2.9 % (0.0-10.0); %Lymphocytes 11.6 % (21.0-51.0); %Monocytes 8.1 % (0.0-10.0); %Neutrophils 76.7 % (42.0-75.0); Hemoglobin 11.6 g/dL (14.0-18.0); Mean Corpuscular HGB CONC 34.4 g/dL (32.0-36.0); Mean Corpuscular Hemoglobin 27.5 pg (27.0-31.0); Mean Corpuscular Volume 80.1 fL (78.0-98.0); Mean Platelet Volume 8.6 fL (7.4-10.4); Platelet Count 240 thou/uL (130-400); RBC Distribution Width 15.3 % (11.5-14.5); White Blood Cell (WBC) Count 7.4 thou/uL (4.8-10.8)
[2018-07-29] MEDS: Sodium Chloride 0.9% 1,000 ML IV SCH (05:51)
[2018-07-29 06:15] LABS: Anion Gap 13 mmol/L (10-20); BUN (Urea Nitrogen) 16 mg/dL (8.4-25.7); Calc. Creatinine Clearance 80 mL/min (70-130); Calcium 8.5 mg/dL (7.8-10.44); Carbon Dioxide 31 mmol/L (23-31); Chloride 99 mmol/L (98-107); Estimated GFR-MDRD 76; Glucose 85 mg/dL (83-110); Sodium 140 mmol/L (136-145)
[2018-07-29] MEDS ORDERED: Enoxaparin Sodium 40 MG/0.4 ML SYRINGE SC SCH (09:00)
--- NOTE | 2018-07-29 09:37 | PDOC.PN ---
- Subjective Encounter Start Date: 07/29/18 Encounter Start Time: 09:00 Subjective: awake, responds to verbal questions -: no fever, cough or sob -: feels better - Objective Resuscitation Status: Resuscitation Status FULL:Full Resuscitation MAR Reviewed: Yes Vital Signs & Weight: Vital Signs (12 hours) Temp Pulse Resp BP BP Pulse Ox 07/29/18 07:05 97.0 F L 71 16 161/74 H 94 L 07/29/18 03:27 98.7 F 65 15 143/65 H 95 07/29/18 00:00 99 F 65 14 157/59 H 95 Weight Weight 181 lb 9.6 oz I&O: 07/28/18 07/29/18 07/30/18 06:59 06:59 06:59 Intake Total 950 Output Total 1300 Balance -350 Result Diagrams: 07/29/18 05:17 07/29/18 05:17 Additional Labs: Accuchecks 07/29/18 07/28/18 05:34 20:39 POC Glucose 85 95 Phys Exam - Physical Examination HEENT: PERRLA, moist MMs Neck: no JVD, supple Respiratory: no wheezing, no rales Cardiovascular: RRR, no significant murmur Gastrointestinal: soft, no distention, positive bowel sounds Musculoskeletal: no edema, pulses present Neurological: non-focal, moves all 4 limbs Psychiatric: normal affect, A&O x 3 Dx/Plan (1) Syncope Code(s): R55 - SYNCOPE AND COLLAPSE Status: Acute (2) Diarrhea Code(s): R19.7 - DIARRHEA, UNSPECIFIED Status: Acute Qualifiers: Diarrhea type: unspecified type Qualified Code(s): R19.7 - Diarrhea, unspecified (3) Hemiparesis and other late effects of cerebrovascular accident Code(s): I69.359 - HEMIPLGA FOLLOWING CEREBRAL INFARCTION AFFECTING UNSP SIDE; I69.398 - OTHER SEQUELAE OF CEREBRAL INFARCTION Status: Chronic Comment: old right cerebellar infarct (4) DM2 (diabetes mellitus, type 2) Status: Chronic Qualifiers: Diabetes mellitus shelter insulin use: with termite technician use Diabetes mellitus complication status: with unspecified complications Qualified Code(s) : E11.8 - Type 2 diabetes mellitus with unspecified complications; Z79.4 - termite technician (current) use of insulin (5) Dyslipidemia Code(s): E78.5 - HYPERLIPIDEMIA, UNSPECIFIED Status: Chronic (6) Hypertension Code(s): I10 - ESSENTIAL (PRIMARY) HYPERTENSION Status: Chronic Qualifiers: Hypertension type: essential hypertension Qualified Code(s): I10 - Essential (primary) hypertension - Plan has peg tube but apparently he eats orally -: hemostable, no signs of infections -: has not provided stool sample with no diarrhea since admit -: dc pt home -: tried calling son Mr.Paxton Bhatia unable to reach him * . Review of Systems - Medications/Allergies Allergies/Adverse Reactions: Allergies Allergy/AdvReac Type Severity Reaction Status Date / Time No Known Drug Allergies Allergy Verified 07/28/18 21:03 Medications: Current Medications Acetaminophen (Tylenol) 650 mg PO Q4H PRN PRN Reason: Headache/Fever or Pain Al Hydroxide/Mg Hydroxide (Maalox) 30 ml PO Q6H PRN PRN Reason: Heartburn or Indigestion Dextrose/Water (Dextrose 50%) 25 gm SLOW IVP PRN PRN PRN Reason: Hypoglycemia Enoxaparin Sodium (Lovenox) 40 mg SC 0900 [facility] Last Admin: 07/29/18 08:31 Dose: 40 mg Glucagon (Glucagon) 1 mg IM PRN PRN PRN Reason: Hypoglycemia Hydralazine HCl (Apresoline) 10 mg SLOW IVP Q4H PRN PRN Reason: Systolic BP > 180 Dextrose/Water (D5w) 1,000 mls @ 0 mls/hr IV .Q0M PRN PRN Reason: Hypoglycemia Sodium Chloride (Normal Saline 0.9%) 1,000 mls @ 100 mls/hr IV .Q10H [facility] Last Admin: 07/29/18 05:51 Dose: 1,000 mls Insulin Human Lispro (Humalog) 0 units SC .MILD SLIDING SCALE PRN PRN Reason: Mild Correctional Scale Insulin Human Lispro (Humalog) 0 units SC .BEDTIME SLIDING SC PRN PRN Reason: Bedtime Correctional Scale Magnesium Hydroxide (Milk Of Magnesium) 30 ml PO DAILYPRN PRN PRN Reason: Constipation Ondansetron HCl (Zofran Odt) 4 mg PO Q6H PRN PRN Reason: Nausea/Vomiting Ondansetron HCl (Zofran) 4 mg IVP Q6H PRN PRN Reason: Nausea/Vomiting
[2018-07-29] MEDS ORDERED: Potassium Chloride 20 MEQ TAB PO SCH (11:00)
--- NOTE | 2018-07-29 14:05 | DIS ---
DATE OF ADMISSION: 07/28/2018 DATE OF DISCHARGE: 07/29/2018 DISCHARGE DISPOSITION: To [facility]. PRIMARY DISCHARGE DIAGNOSES: Syncope, likely due to dehydration from diarrhea. Diarrhea has resolved with patient not given any stool sample during his stay here. Prior history of cerebrovascular accident, diabetes mellitus type 2, dyslipidemia, and hypertension. PROCEDURES DONE DURING HOSPITALIZATION: CT brain done showed no acute intracranial abnormality. Chest x-ray done showed no acute cardiopulmonary abnormality. H&H 11 and 33, platelet count is 240 with 76% neutrophils. White count of 7.4. Creatinine is 0.9. Troponin x3 negative. CK-MB 2.7, albumin is 3.9. Telemetry has not revealed any arrhythmias. Blood pressure is stable. DISCHARGE MEDICATIONS: The patient to continue all his home medication as before, Norvasc 10 mg daily, Plavix 75 mg daily, hydralazine 50 mg 3 times daily , Levemir 15 units subcu twice daily, lisinopril 40 mg daily, metformin 500 mg p.o. twice daily, metoprolol 50 mg twice daily, potassium chloride 20 mEq p.o. daily, pravastatin 40 mg p.o. daily, Ranitidine 150 mg twice daily, Flomax 0.4 mg daily, trazodone 50 mg p.o. at bedtime, Lasix 40 mg daily. ALLERGIES: No known drug allergies. DISCHARGE PLAN: The patient to check his blood pressure and pulse twice daily and record for 10 days to follow up with primary care physician. BRIEF COURSE DURING HOSPITALIZATION: The patient initially was brought to emergency room yesterday after he had 2 episodes of passing out in his apartment. In view of this history and the patient revealing that he has had diarrhea from last 2 weeks, he was placed under observation. The patient has had gentle IV hydration done. Telemetry has not revealed any arrhythmia. CT brain and chest x-ray have not revealed any acute pathology. The patient is oriented this morning and is hemodynamically stable. He will be shortly discharged back to his assisted living facility today. There are no signs of any infection at present. Please see a [id number] documentation on [employer] for the day of discharge. [facility]
[2018-07-29 14:42] VITALS: BP 158/61; TEMP 98.1
--- NOTE | 2018-08-05 11:53 | EKG ---
Test Reason : Blood Pressure : / mmHG Vent. Rate : 064 BPM Atrial Rate : 064 BPM P-R Int : 172 ms QRS Dur : 084 ms QT Int : 466 ms P-R-T Axes : 032 -07 -29 degrees QTc Int : 480 ms Normal sinus rhythm Left ventricular hypertrophy with repolarization abnormality Prolonged QT Abnormal ECG Confirmed by CANDACE MAURER DO ([id number]), city editor STANISLAV JOSÉ ([id number]) on 08/05/2018 11:52:54 AM Referred By: Confirmed By:CANDACE MAURER DO
== END 2018-07-29 14:01 | disposition home or self-care (01) ==
LOC: ERS 13:01 → 2NO 18:33
PROVIDERS: ADMIT Internal Medicine; ATTEND Internal Medicine
DX: R55 Syncope and collapse (principal); R19.7 Diarrhea, unspecified; I69.951 Hemiplegia and hemiparesis following unspecified cerebrovascular disease affecting right dominant side; I11.0 Hypertensive heart disease with heart failure; I50.9 Heart failure, unspecified; E11.9 Type 2 diabetes mellitus without complications; E78.5 Hyperlipidemia, unspecified; N40.0 Benign prostatic hyperplasia without lower urinary tract symptoms; F32.9 Major depressive disorder, single episode, unspecified; Z79.02 Long term (current) use of antithrombotics/antiplatelets; Z79.4 Long term (current) use of insulin; Z79.899 Other long term (current) drug therapy; Z93.1 Gastrostomy status
CPT/HCPCS: 70450; 71045; 80048; 80053; 81001; 82553; 82962 ×2; 84484 ×2; 85025 ×2; 87077; 87086; 87186; 93005; 96360; 96361 ×3; 96372; 97139; 99285; G0378 ×2; 36415; 36416; J1650

== ENCOUNTER 2018-08-21 13:03 | Observation (INO) | payer MEDICARE, MEDICAID ==
[2018-08-21 13:32] LABS: Bilirubin Negative (Negative); Blood, Urine Negative (Negative); Clarity CLEAR (Clear); Glucose, Urine (Dipstick) Negative (Negative); Leukocyte Small (Negative); Nitrite Negative (Negative); Protein, Urine (Dipstick) 30 mg/dL (Neg-Trace); Urobilinogen 0.2 mg/dL (0.2-1.0)
[2018-08-21 13:34] LABS: Hyaline Casts/LPF 4-6 HYALINE CAST LPF (0-3 Hyaline); Pathc Cast-AUWi Flag 1.16 (0-2.49); Squamous Epithelial 0-3 HPF (0-3); Yeast-AUWi Flag 58.2 (0-25.0)
[2018-08-21 13:37] LABS: #Eosinphils 0.3 thou/uL (0.0-0.7); #Lymphocytes 1.5 thou/uL (1.20-3.40); #Monocytes 0.7 thou/uL (0.11-0.59); #Neutrophils 6.6 thou/uL (1.40-6.50); %Basophils 0.4 % (0.0-1.0); %Eosinophils 3.2 % (0.0-10.0); %Lymphocytes 16.2 % (21.0-51.0); %Monocytes 8.1 % (0.0-10.0); %Neutrophils 72.1 % (42.0-75.0); Hemoglobin 11.9 g/dL (14.0-18.0); Mean Corpuscular HGB CONC 33.1 g/dL (32.0-36.0); Mean Corpuscular Hemoglobin 27.1 pg (27.0-31.0); Mean Corpuscular Volume 81.8 fL (78.0-98.0); Mean Platelet Volume 8.5 fL (7.4-10.4); Platelet Count 278 thou/uL (130-400); RBC Distribution Width 14.2 % (11.5-14.5); Red Blood Cell (RBC) Count 4.39 mill/uL (4.70-6.10); White Blood Cell (WBC) Count 9.1 thou/uL (4.8-10.8)
[2018-08-21 13:45] LABS: Bacteria/HPF Rare-Few HPF (None Seen); RBC/HPF 0-3 HPF (0-3); Yeast-All Forms 1+ HPF (None Seen)
[2018-08-21 13:54] LABS: ALT (SGPT) 14 U/L (8-55); AST (SGOT) 13 U/L (5-34); Albumin 3.8 g/dL (3.4-4.8); Alkaline Phosphatase 60 U/L (40-150); Anion Gap 16 mmol/L (10-20); BUN (Urea Nitrogen) 34 mg/dL (8.4-25.7); Bilirubin, Total 0.4 mg/dL (0.2-1.2); Calc. Creatinine Clearance 0 mL/min (70-130); Calcium 9.6 mg/dL (7.8-10.44); Carbon Dioxide 29 mmol/L (23-31); Chloride 96 mmol/L (98-107); Estimated GFR-MDRD 40; Globulin 3.5 g/dL (2.4-3.5); Glucose 154 mg/dL (83-110); Potassium 3.5 mmol/L (3.5-5.1); Protein, Total 7.3 g/dL (5.8-8.1); Sodium 137 mmol/L (136-145)
--- NOTE | 2018-08-21 15:02 | CT ---
CT ABDOMEN AND PELVIS WITH IV CONTRAST: Date: 08/21/18 Multiple axial tomograms obtained through abdomen and pelvis with IV enhancement. INDICATION: Hematuria and hematochezia. Abdominal pain. FINDINGS: Lung bases are clear. There is evidence of a small pericardial effusion. Liver, spleen, and pancreas appear unremarkable. Adrenal glands and kidneys unremarkable. No evidence of hydronephrosis or ureteral obstruction. Urina ry bladder is contracted with a Robledo catheter in place. Small bowel loops are normal caliber. Radiopaque suture seen in the right colon, suggesting partial r ight colectomy. Patient has a PEG tube in place which appears adequately positioned. Aorta shows atherosclerotic calcification, but normal caliber. No adenopathy, free fluid, or mass les ion identified. IMPRESSION: 1. Evidence of small pericardial effusion on images through the lower chest. 2. No acute intra-abdominal process identified. POS: [facility]
[2018-08-21] MEDS ORDERED: Pantoprazole 40 MG VIAL ONE (15:12)
[2018-08-21] MEDS ORDERED: Ondansetron ODT 4 MG TAB PO PRN (16:43)
[2018-08-21] MEDS ORDERED: Dextrose 5% in Water 1,000 ML IV PRN (16:43)
[2018-08-21] MEDS ORDERED: Dextrose 50% Abboject 50 ML SYRINGE SLOW IVP PRN (16:43)
[2018-08-21] MEDS ORDERED: Acetaminophen 325 MG TAB PO PRN (16:43)
[2018-08-21] MEDS ORDERED: HumaLOG 300 UNITS/3 ML VIAL SC PRN (16:43)
--- NOTE | 2018-08-21 17:41 | HP ---
CHIEF COMPLAINT: Referred to the [facility] by [facility] for re ctal bleeding and intermittent gross hematuria. HISTORY OF PRESENT ILLNESS: The patient has had a stroke in the past and per family is unable to giv e a good history. They say that occasionally he tugs on his Robledo catheter and occasionally he has b lood in his urine and occasionally it is clear. It is pertinent that the patient is on Plavix. One week ago, he was hospitalized after having a small amount of bright red blood in his stool. He was o bserved, his hemoglobin was stable, it did not recur, and he was sent home. Today, it happened again . Rectal exam was done by the emergency room physician, which revealed bright red blood and a hemorr hoid. He gives no real history of nausea, vomiting, abdominal pain, although he is a poor historian. Family is aware of none other. PAST MEDICAL HISTORY: Extensive. 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 He has a history of diabetes mellitus type 2, hypertension. He has a PEG tube that has not been used in a year. 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 He has had a partial colectomy for colon ca ncer in 2012. 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 He has a hist ory of dyslipidemia, benign prostatic hypertrophy, hypertension, hyperlipidemia. ALLERGIES: No known drug allergies. CURRENT MEDICATIONS: Trazodone 50 mg at bedtime, Glucophage 500 mg twice a day, hydralazine 50 mg 3 times a day, Flomax 0.4 mg a day, ranitidine 150 mg twice a day, pravastatin 40 mg a day, potassium c hloride 20 mEq a day, metoprolol 50 mg twice a day, lisinopril 40 mg a day, Levemir 15 units subcu b. i.d., Lasix 40 mg a day, Plavix 75 mg a day, amlodipine 10 mg a day. SOCIAL HISTORY: He has 2 children, nonsmoker, nondrinker. No drug use. He needs assistance with am bulation. I have discussed with his surrogate decision makers, he is DNR. FAMILY HISTORY: Significant for lung cancer and diabetes. REVIEW OF SYSTEMS: Unobtainable in this patient who is unable to give history. The caregivers who a re with him states that they have noted no other problems than those mentioned at this time. PHYSICAL EXAMINATION: VITAL SIGNS: Blood pressure 150/65, pulse 60, respirations 18, temperature 97.4, room air sat 98. HEAD, EYES, EARS, NOSE, AND THROAT: Reveal pupils equal and round. Extraocular movements grossly in tact. Oral mucous membranes are wet. Dental hygiene is fair. Nasal mucosa is clear. NECK: No jugular venous distention, adenopathy, or thyromegaly. CHEST: Clear to auscultation and percussion. HEART: Had a regular rate and rhythm. First and second heart sounds are clear. There are no apprec iated murmurs or gallops. ABDOMEN: Soft. Bowel sounds are normal. There is no hepatosplenomegaly, no mass, no rebound. EXTREMITIES: Reveal 1+ edema. No cyanosis, no clubbing. SKIN: Warm and dry without bruises or rash. HEME/LYMPH: No tender or swollen lymph nodes in axilla, inguinal, or cervical area. PULSES: Carotid, radial, femoral, and dorsalis pedis pulses were symmetric. NEUROLOGIC: He had a dense left hemiplegia. Cranial nerves II-XII are intact. Abdomen and pelvis CT was done, no acute intraabdominal process was identified. LABORATORY DATA: Hemoglobin 11.9, which is consistent with 1 week ago. White count 9.1, platelet co unt 278,000. Chemistries: Creatinine 1.69, BUN 34, sodium 137, potassium 3.5, glucose 154. Urine r evealed a few white cells, small leukocyte esterase, negative nitrite. ADMITTING DIAGNOSES: 1. Scant bright red blood per rectum, most likely related to a hemorrhoid. We will repeat CBC in th e morning. 2. Elevated creatinine consistent with chronic kidney disease, stage 3. We will repeat in the [facility]. 3. Hematuria. His urine is now clear. I suspect the problem is from mechanical scraping of his isa dder as he tugs on his Robledo catheter. 4. Diabetes mellitus type 2. We will follow with Accu-Cheks, continue home medicines. 5. Hypertension. We will continue home medicines. 6. Left hemiplegia, stable. The patient will be placed in the hospital on observation status. He w ill be re-evaluated tomorrow and decisions made at that time.
[2018-08-21 18:14] VITALS: BMI 22.9
[2018-08-21] MEDS: metFORMIN 500 MG TAB PO SCH (18:19)
[2018-08-21] MEDS ORDERED: Non-Formulary Item 1 EACH (Levemir Flexpen [Levemir Flexpen] 15 UNITS) SC SCH (21:00)
[2018-08-21] MEDS: hydrALAZINE 25 MG TAB PO SCH (21:43)
[2018-08-21] MEDS: Insulin Glargine 15 UNITS in Pre-Filled Syringe 1 EACH SC SCH (21:44)
[2018-08-21] MEDS: Metoprolol Tartrate 50 MG TAB PO SCH (21:44)
[2018-08-21] MEDS: traZODone HCl 50 MG TAB PO SCH (21:45)
[2018-08-22 04:50] LABS: #Eosinphils 0.3 thou/uL (0.0-0.7); #Lymphocytes 1.2 thou/uL (1.20-3.40); #Monocytes 0.6 thou/uL (0.11-0.59); #Neutrophils 5.5 thou/uL (1.40-6.50); %Basophils 0.6 % (0.0-1.0); %Eosinophils 3.8 % (0.0-10.0); %Lymphocytes 16.3 % (21.0-51.0); %Monocytes 7.3 % (0.0-10.0); Hemoglobin 10.7 g/dL (14.0-18.0); Mean Corpuscular HGB CONC 34.6 g/dL (32.0-36.0); Mean Corpuscular Hemoglobin 28.1 pg (27.0-31.0); Mean Corpuscular Volume 81.4 fL (78.0-98.0); Mean Platelet Volume 9.1 fL (7.4-10.4); Platelet Count 268 thou/uL (130-400); RBC Distribution Width 14.2 % (11.5-14.5); White Blood Cell (WBC) Count 7.6 thou/uL (4.8-10.8)
[2018-08-22 05:08] LABS: Anion Gap 13 mmol/L (10-20); BUN (Urea Nitrogen) 26 mg/dL (8.4-25.7); Calc. Creatinine Clearance 58 mL/min (70-130); Calcium 8.9 mg/dL (7.8-10.44); Carbon Dioxide 29 mmol/L (23-31); Chloride 98 mmol/L (98-107); Estimated GFR-MDRD 55; Glucose 81 mg/dL (83-110); Potassium 3.2 mmol/L (3.5-5.1); Sodium 137 mmol/L (136-145)
--- NOTE | 2018-08-22 08:47 | PDOC.PN ---
- Subjective Encounter Start Date: 08/22/18 Encounter Start Time: 08:45 Subjective: no blood pr - Objective Resuscitation Status: Resuscitation Status DNR:Do Not Resuscitate MAR Reviewed: Yes Vital Signs & Weight: Vital Signs (12 hours) Temp Pulse Resp BP BP BP Pulse Ox 08/22/18 07:58 98.6 F 66 18 163/60 H 96 08/22/18 05:32 98.2 F 61 16 136/52 L 96 08/22/18 00:00 98.5 F 62 16 129/61 96 08/21/18 21:43 60 151/84 H 08/21/18 21:00 98.0 F 60 18 151/84 H 98 Weight Weight 173 lb 14.4 oz I&O: 08/21/18 08/22/18 08/23/18 06:59 06:59 06:59 Intake Total 20 Output Total 850 Balance -830 Result Diagrams: 08/22/18 04:00 08/22/18 04:00 Additional Labs: Accuchecks 08/22/18 08/21/18 08/21/18 05:33 21:43 18:26 POC Glucose 157 H 128 H 62 L Phys Exam - Physical Examination Neck: no JVD Respiratory: clear to auscultation bilateral Cardiovascular: RRR, no significant murmur Gastrointestinal: soft, non-tender Musculoskeletal: edema present Dx/Plan (1) Rectal bleeding Code(s): K62.5 - HEMORRHAGE OF ANUS AND RECTUM Status: Acute (2) DM2 (diabetes mellitus, type 2) Status: Chronic Qualifiers: Diabetes mellitus petroleum terminal plant operator insulin use: with petroleum terminal plant operator use Diabetes mellitus complication status: with kidney complications Diabetes mellitus complication detail: with chronic kidney disease Chronic kidney disease stage : stage 3 (moderate) Qualified Code(s): E11.22 - Type 2 diabetes mellitus with diabetic chronic kidney disease; N18.3 - Chronic kidney disease, stage 3 ( moderate); Z79.4 - petroleum terminal plant operator (current) use of insulin (3) Dyslipidemia Code(s): E78.5 - HYPERLIPIDEMIA, UNSPECIFIED Status: Chronic (4) Hypertension Code(s): I10 - ESSENTIAL (PRIMARY) HYPERTENSION Status: Chronic Qualifiers: Hypertension type: essential hypertension - Plan no further bleeding, discuss with family -: GI consult to remove PEG * .
[2018-08-22] MEDS ORDERED: Prevnar 13-Val Conj/PF 0.5 ML SYRINGE IM ONE (09:00)
[2018-08-22] MEDS: metFORMIN 500 MG TAB PO SCH ×2 (09:18→16:29)
[2018-08-22] MEDS: Atorvastatin Calcium 10 MG TAB PO SCH (09:19)
[2018-08-22] MEDS: Amlodipine 10 MG TAB PO SCH (09:20)
[2018-08-22] MEDS: Furosemide 40 MG TAB PO SCH (09:20)
[2018-08-22] MEDS: Famotidine 20 MG TAB PO SCH (09:20)
[2018-08-22] MEDS: Clopidogrel Bisulfate 75 MG TAB PO SCH (09:20)
[2018-08-22] MEDS: Glycopyrrolate 1 MG TAB PO SCH (09:20)
[2018-08-22] MEDS: hydrALAZINE 25 MG TAB PO SCH ×3 (09:21→20:37)
[2018-08-22] MEDS: Insulin Glargine 15 UNITS in Pre-Filled Syringe 1 EACH SC SCH ×2 (09:21→20:38)
[2018-08-22] MEDS: Lisinopril 20 MG TAB PO SCH (09:21)
[2018-08-22] MEDS: Tamsulosin HCl 0.4 MG CAP PO SCH (09:22)
[2018-08-22] MEDS: Metoprolol Tartrate 50 MG TAB PO SCH ×2 (09:22→20:38)
[2018-08-22] MEDS: traZODone HCl 50 MG TAB PO SCH (20:38)
--- NOTE | 2018-08-22 21:19 | OP ---
DATE OF PROCEDURE: 08/22/2018 PROCEDURE: Percutaneous gastrostomy tube removal. INDICATION FOR PROCEDURE: Increased functional status with the dysphagia. DESCRIPTION OF PROCEDURE: After the procedure was discussed with the patient including removal of th e existing PEG tube and placement of a dressing over the bandage, the patient gave verbal consent to proceed with the procedure. The percutaneous gastrostomy tube was inspected and noted to be a triple lumen percutaneous gastrostomy tube with a Luer Lock supporting a balloon using a 10 mL syringe, ap proximately 15-17 mL of clear to yellowish fluid was then withdrawn from the interior balloon success fully without difficulty, at which point the PEG tube was then slowly removed from the stoma without any resistance and successfully removed from the patient. There was no residual bleeding or pain wi th this particular procedure. A sterile dressing was then applied to the stoma site itself and affix ed with nonadherent tape. All equipment was then removed and the procedure was terminated. The aisha ent tolerated the procedure well at bedside with no immediate perioperative complications. IMPRESSION: Successful removal of percutaneous gastrostomy tube with placement of a sterile dressing . RECOMMENDATIONS: 1. We would avoid any baths or swimming within the next 48-72 hours given the likelihood of fl uid into the stomach. 2. Can subject the patient to showers and running water over the wound as it closes up over the next 24-48 hours. 3. We would maintain a sterile dressing over the stoma site itself until properly closed which shoul d occur within 24-48 hours. 4. We will keep continue to monitor the patient's ability to swallow effectively. If the patient is deemed to have worsening dysphagia as related to his stroke or an additional stroke, we then conside r a PEG tube placement at that time that would require a repeat of the EGD and gastrostomy tube place ment at that time. We will sign off at this time. Please call with any additional questions.
[2018-08-22] MEDS ORDERED: traMADol HCl 50 MG TAB PO PRN (22:51)
--- NOTE | 2018-08-22 22:54 | CON ---
DATE OF CONSULTATION: 08/22/2018 REASON FOR CONSULTATION: Dysphagia, possible PEG tube removal. CONSULTING PHYSICIAN: Dr. Rae Pineda. HISTORY OF PRESENT ILLNESS: The patient is a 72-year-old male with past medical history of diabetes with nonhealing foot ulcers, requiring amputation, hyperlipidemia, hypertension, cerebrovascular acci dent with right-sided hemiparesis and colon cancer, status post resection (right hemicolectomy in 2012), and BPH, presenting with complaints of hematochezia and for evaluation for PEG tube removal. Per patient and per chart review, the patient said that he has small amount of bright red blood per r ectum in his stool approximately 1 week ago with blood present on the toilet paper and possibly withi n the toilet itself. It was a minimal amount of bright red blood with no associated increased rectal pain or abdominal pain. After the initial episode, it did not recur; however, it did recur yesterda y and was subsequently evaluated in the emergency room, which revealed a small amount of bright red b lood per rectum as well as a hemorrhoid being the more likely culprit. However, he was ultimately ad mitted for further evaluation and trending of his H and H, in addition to evaluation for his dysphagi a, for which he had received a PEG tube in the past. Upon chart review, the patient had a stroke in the past, approximately 1.5 years ago, that resulted in increased right hemiplegia/hemiparesis as wel l as dysphagia. He, ultimately, had a PEG tube placed at that particular point in time and had been using it up until about a year ago, at which point his functional status for swallowing had improved to the point where he was able to tolerate a semisolid/solid diet without difficulty. At the current point in time, he states that he is able to tolerate a semi-solid diet with no episodes of coughing or gagging unless he is eating solids or drinking liquids too fast. He also states that he has lost around approximately 60 pounds over the last year and a half that was unintentional, but had signific ant changes in his diet during that time. Currently, he denies any nausea, vomiting, fevers, chills, shortness of breath, abdominal pain, dysphagia, odynophagia, diarrhea, or constipation. Upon review of the patient's chart, he had a colonoscopy performed on 03/14/2018. The colonoscopy, a t that time, showed presence of an ileocolonic anastomosis consistent with a right hemicolectomy. Th ere was a significant amount of liquid stool that was seen throughout the entire colon, thereby inter fering with visualization of the colonic mucosa. Despite this, a 1.1 cm flat polyp was seen in the t ransverse colon as well as a 1.2 cm polyp was removed from the rectum, both with snare cautery polype ctomy. Both of these polyps were read as either a hyperplastic polyp or an inflammatory-type polyp w ith areas of erosion. REVIEW OF SYSTEMS: A 10-category review of systems was obtained with all responses negative except f or the pertinent positives as listed in the HPI. PAST MEDICAL HISTORY: As per HPI. PAST SURGICAL HISTORY: Right hemicolectomy in 03/2013. SOCIAL HISTORY: Denies any tobacco, alcohol, or illicit drug use. FAMILY HISTORY: Denies any GI malignancies. OUTPATIENT MEDICATIONS: Reviewed. ALLERGIES: No known drug allergies. PHYSICAL EXAMINATION: VITAL SIGNS: Temperature 98.6, pulse 69, blood pressure 162/67, respiratory rate 18, satting 98% on room air. GENERAL: The patient was lying in bed, in no acute distress, alert and oriented x3. NECK: Supple. No JVD or scleral icterus noted. CARDIOVASCULAR: Regular rate and rhythm with no discernible murmurs, gallops, or rubs. LUNGS: Clear to auscultation bilaterally with no discernible wheezes or rales. ABDOMINAL: Normoactive bowel sounds, soft, nontender, nondistended. A PEG tube was seen in the left upper quadrant with no surrounding erythema or skin breakdown. No evidence of purulence was noted i n this region as well. EXTREMITIES: No cyanosis, clubbing, or edema. LABORATORY DATA: CBC with a white blood cell count of 7.6, hemoglobin 7.7, hematocrit 31, platelets 268. Chemistry with a sodium of 137, potassium 3.2, chloride 98, CO2 of 29, BUN 26, creatinine 1.29, glucose 81. IMAGING DATA: A CT of the abdomen and pelvis was obtained on 08/21/2018, which showed a small perica rdial effusion on images through the lower chest, but no acute intra-abdominal process was identified with the PEG tube appearing in adequate position. ASSESSMENT AND PLAN: The patient is a 72-year-old male with past medical history of diabetes with no nhealing foot ulcers, hyperlipidemia, hypertension, benign prostatic hyperplasia, cerebrovascular acc ident with right hemiparesis, and colon cancer, status post right hemicolectomy in 2012, presenting w ith improved dysphagia and desire to remove his PEG tube. Adequate nutrition/PEG tube removal. The patient sustained a cerebrovascular accident within the last year and a half with resultant dysph agia, requiring the placement of a percutaneous gastrostomy tube at an outside institution. He was s ubsequently using this PEG tube over the course of 6 months, but during those 6 months his swallowing ability improved and has now been able to tolerate an oral diet for approximately the last year. Th e last time the PEG tube was accessed (prior to this admission) was approximately 1 month ago for tello quate flushing and cleaning of the tube. At this point, he was evaluated by Speech Pathology earlier today with no evidence of aspiration with a semi-solid diet and is safe for adequate oral intake at this time. RECOMMENDATIONS: 1. We would place the patient on the diet recommended by Speech Pathology. 2. Patient can tolerate oral intake at this time. further evaluation. We will remove the PEG tube a t this time per patient preferences. 3. We would have the patient follow up in the GI clinic within the next 6 months for repeat evaluati on prior to a repeat colonoscopy given inadequate prep on the one obtained in 03/2018. We will sign off at this time. Please call with any additional questions.
[2018-08-23 07:43] VITALS: TEMP 98.3
--- NOTE | 2018-08-23 08:56 | DIS ---
TRANSFER OF CARE NOTE DATE OF ADMISSION: 08/21/2018 DATE OF DISCHARGE: 08/23/2018 DISCHARGE DISPOSITION: Discharged home. PRIMARY CARE PHYSICIAN: Yi Combs. FINAL DIAGNOSES: 1. Hemorrhage from rectum. 2. Internal hemorrhoids. 3. Diabetes mellitus type 2. 4. Hypertension. 5. Indwelling Robledo catheter. 6. Post-peg removal. DISCHARGE MEDICATIONS: Lasix 40 mg twice a day, metformin 1000 mg twice a day, potassium chloride 20 mEq a day, trazodone 50 mg at bedtime, Flomax 0.4 mg a day, ranitidine 150 mg twice a day, pravastat in 40 mg a day, metoprolol 50 mg a day, lisinopril 40 mg a day, Levemir 15 units subcu twice a day, h ydralazine 50 mg p.o. t.i.d. Robinul 1 mg daily, Plavix 75 mg a day, amlodipine 10 mg a day. ALLERGIES: None. DIET: Heart healthy. PENDING AT TIME OF DISCHARGE: Nothing. CONSULTATIONS: Dr. Shayne Valle, Gastroenterology. PROCEDURES: PEG tube removal 08/22/2018. DIET: Heart healthy. HOSPITAL COURSE: The patient with scant rectal bleeding, brought back to the hospital 1 week after a previous episode. He was found to have a small internal hemorrhoid likely bleeding. The bleeding s topped. Vital signs remained stable. Hemoglobin showed no significant change. He has had no furthe r bleeding while in the hospital. He is being discharged with the addition of Anusol suppositories f or hemorrhoids twice a day. He had had a PEG in since a cerebral hemorrhage. He had not used the PE G in over a year. The family wishes it to be removed. Gastroenterology was consulted. It was remov ed. Wound care instructions have been given. Patient has been requested to follow up with PCP in 1 week. CODE STATUS: Full. The patient had desired hospice care, but wanted to remain full code. He is srinivas ng discharged on his usual home health. I have explained to the family that minor bleeding is something to discuss with his primary care prov ider, but if he has significant rectal bleeding, he needs to return to the hospital.
[2018-08-23] MEDS: Metoprolol Tartrate 50 MG TAB PO SCH (09:21)
[2018-08-23] MEDS: Amlodipine 10 MG TAB PO SCH (09:21)
[2018-08-23] MEDS: Lisinopril 20 MG TAB PO SCH (09:21)
[2018-08-23] MEDS: Atorvastatin Calcium 10 MG TAB PO SCH (09:21)
[2018-08-23] MEDS: Clopidogrel Bisulfate 75 MG TAB PO SCH (09:21)
[2018-08-23] MEDS: Furosemide 40 MG TAB PO SCH (09:21)
[2018-08-23] MEDS: Tamsulosin HCl 0.4 MG CAP PO SCH (09:22)
[2018-08-23] MEDS: Glycopyrrolate 1 MG TAB PO SCH (09:22)
[2018-08-23] MEDS: hydrALAZINE 25 MG TAB PO SCH (09:22)
[2018-08-23] MEDS: Famotidine 20 MG TAB PO SCH (09:23)
[2018-08-23] MEDS: Insulin Glargine 15 UNITS in Pre-Filled Syringe 1 EACH SC SCH (09:23)
[2018-08-23] MEDS: metFORMIN 500 MG TAB PO SCH (09:23)
[2018-08-23 09:37] VITALS: BP 154/73
--- NOTE | 2018-08-30 13:59 | EKG ---
Test Reason : Blood Pressure : / mmHG Vent. Rate : 060 BPM Atrial Rate : 060 BPM P-R Int : 140 ms QRS Dur : 080 ms QT Int : 468 ms P-R-T Axes : 015 -10 018 degrees QTc Int : 468 ms Normal sinus rhythm Left ventricular hypertrophy with repolarization abnormality Abnormal ECG Confirmed by JODY MEDINA DO ([id number]), rewrite editor STANISLAV JOSÉ ([id number]) on 08/30/2018 1:59:37 PM Referred By: Confirmed By:JODY MEDINA DO
== END 2018-08-23 11:35 | disposition home or self-care (01) ==
LOC: ERS 13:03 → T4-B 15:12
PROVIDERS: ADMIT Internal Medicine; ATTEND Internal Medicine
PROC: 0DP63UZ Removal of Feeding Device from Stomach, Percutaneous Approach (ICD-10-PCS; principal; 2018-08-22)
DX: K92.1 Melena (principal); R31.0 Gross hematuria; K64.8 Other hemorrhoids; I69.391 Dysphagia following cerebral infarction; R13.10 Dysphagia, unspecified; I69.354 Hemiplegia and hemiparesis following cerebral infarction affecting left non-dominant side; E78.5 Hyperlipidemia, unspecified; N40.0 Benign prostatic hyperplasia without lower urinary tract symptoms; I12.9 Hypertensive chronic kidney disease with stage 1 through stage 4 chronic kidney disease, or unspecified chronic kidney disease; E11.22 Type 2 diabetes mellitus with diabetic chronic kidney disease; N18.3 Chronic kidney disease, stage 3 (moderate); Z66 Do not resuscitate; Z85.038 Personal history of other malignant neoplasm of large intestine; Z79.02 Long term (current) use of antithrombotics/antiplatelets; Z79.4 Long term (current) use of insulin; Z79.899 Other long term (current) drug therapy; Z90.49 Acquired absence of other specified parts of digestive tract; Z93.1 Gastrostomy status
CPT/HCPCS: 74177; 80048; 80053; 82274; 82962 ×3; 85025 ×2; 86850; 86900; 86901; 87077; 87086; 87184; 87186; 90662; 90670; 93005; 96361; 96374; 99285; G0008; G0009; G0378 ×2; 36415; 36416; 81003; 81015; 90471; C9113; G8996-GN-CJ; G8997-GN-CJ

== ENCOUNTER 2018-08-24 21:03 | Emergency (ER) | payer MEDICARE, MEDICAID ==
[2018-08-24 22:37] LABS: #Eosinphils 0.3 thou/uL (0.0-0.7); #Lymphocytes 1.4 thou/uL (1.20-3.40); #Neutrophils 8.5 thou/uL (1.40-6.50); %Basophils 0.3 % (0.0-1.0); %Eosinophils 2.6 % (0.0-10.0); %Lymphocytes 12.5 % (21.0-51.0); %Monocytes 8.7 % (0.0-10.0); %Neutrophils 75.9 % (42.0-75.0); Hemoglobin 11.7 g/dL (14.0-18.0); Mean Corpuscular HGB CONC 33.7 g/dL (32.0-36.0); Mean Corpuscular Hemoglobin 28.1 pg (27.0-31.0); Mean Corpuscular Volume 83.4 fL (78.0-98.0); Mean Platelet Volume 8.8 fL (7.4-10.4); Platelet Count 241 thou/uL (130-400); RBC Distribution Width 14.4 % (11.5-14.5); Red Blood Cell (RBC) Count 4.15 mill/uL (4.70-6.10); White Blood Cell (WBC) Count 11.2 thou/uL (4.8-10.8)
[2018-08-24 22:41] LABS: Bilirubin Negative (Negative); Blood, Urine Large (Negative); Glucose, Urine (Dipstick) Negative (Negative); Leukocyte Trace (Negative); Nitrite Negative (Negative); Protein, Urine (Dipstick) 100 mg/dL (Neg-Trace); Urobilinogen 0.2 mg/dL (0.2-1.0)
[2018-08-24 22:42] LABS: Clarity Cloudy (Clear)
[2018-08-24 22:43] LABS: Bacteria/HPF Rare-Few HPF (None Seen); Hyaline Casts/LPF 0-3 HYALINE CAST LPF (0-3 Hyaline); RBC/HPF GREATER THAN 50-TNTC HPF (0-3); Squamous Epithelial 0-3 HPF (0-3); WBC/HPF 0-3 HPF (0-3)
[2018-08-24 22:58] LABS: ALT (SGPT) 10 U/L (8-55); AST (SGOT) 11 U/L (5-34); Albumin 3.8 g/dL (3.4-4.8); Alkaline Phosphatase 60 U/L (40-150); Anion Gap 17 mmol/L (10-20); BUN (Urea Nitrogen) 22 mg/dL (8.4-25.7); Bilirubin, Total 0.4 mg/dL (0.2-1.2); Calc. Creatinine Clearance 0 mL/min (70-130); Calcium 9.1 mg/dL (7.8-10.44); Carbon Dioxide 26 mmol/L (23-31); Chloride 99 mmol/L (98-107); Estimated GFR-MDRD 42; Globulin 3.6 g/dL (2.4-3.5); Glucose 140 mg/dL (83-110); Potassium 3.4 mmol/L (3.5-5.1); Protein, Total 7.4 g/dL (5.8-8.1); Sodium 139 mmol/L (136-145)
[2018-08-24] MEDS ORDERED: metroNIDAZOLE 250 MG TAB ONE (23:34)
== END 2018-08-25 00:38 | disposition home or self-care (01) ==
LOC: ERS 21:03
DX: R19.7 Diarrhea, unspecified (principal); E11.9 Type 2 diabetes mellitus without complications; E78.5 Hyperlipidemia, unspecified; I11.0 Hypertensive heart disease with heart failure; I50.9 Heart failure, unspecified; Z86.73 Personal history of transient ischemic attack (TIA), and cerebral infarction without residual deficits; F32.9 Major depressive disorder, single episode, unspecified; Z79.84 Long term (current) use of oral hypoglycemic drugs; Z79.899 Other long term (current) drug therapy
CPT/HCPCS: 36415; 51702; 80053; 81003; 81015; 85025